=== PATIENT | female | born 1965 | race Caucasian/White ===

== ENCOUNTER → 2017-08-21 16:53 | Outpatient (CLI) | payer MEDICAID, SELFPAY ==
--- NOTE | 2017-08-21 | MM_ITS ---
MM Dig screening mamm BI w/CAD CAD Screening ORDERING PHYSICIAN : Michael Patel MD PATIENT AGE: 52 years GENDER: Female INDICATION: Routine screening. No hormones. No new complaints. Paternal grandmother with breast cancer. TECHNIQUE: Standard CC and MLO images were obtained. R2 CAD reviewed. COMPARISON: Previous mammograms: 2015, 2016, May 2014 FINDINGS: Dense breast bilaterally decreased sensitivity mammography. Dense inhomogeneous breast mammography of decreased sensitivity in breast of this character. However I see no areas of significant new findings. RIGHT BREAST:No discrete new areas of concern. Scattered small punctate calcifications upper-outer quadrant right breast are similar to previous studies. Can be followed. Most likely benign. LEFT BREAST: No new areas of concern Dense breast. Again round density upper-outer quadrant left breast is stable and most likely reflects the cyst identified on ultrasound at 2:00. July 2016. IMPRESSION: Very dense breast bilaterally decreases sensitivity mammography . However I see no significant new areas on today's mammogram.. Follow-up ONE year mammogram recommended If any palpable areas arise ultrasound be recommended as useful compliment to mammography in breast of this increased density and given patient's history of fibrocystic changes on previous studies BI-RADS Category: 2 Benign Finding(s) RECOMMENDED FOLLOW-UP: 1YR - 1 YEAR FOLLOW-UP (A letter has been sent to the patient regarding results of the study.)
== END ==
PROVIDERS: PCP Internal Medicine Adolescent Medicine; Visit Provider Internal Medicine Adolescent Medicine
DX: Z12.31 Encounter for screening mammogram for malignant neoplasm of breast (principal)
CPT/HCPCS: 77067

== ENCOUNTER → 2017-10-18 08:38 | Outpatient (CLI) | payer MEDICAID, SELFPAY ==
[2017-10-18 13:40] LABS: Alanine Aminotransferase 35 U/L (12-78); Albumin/Globulin Ratio 1.3 (1.1-1.8); Alkaline Phosphatase 112 U/L (46-116); Anion Gap 11.3 mEq/L (5-15); Aspartate Amino Transferase 28 U/L (15-37); Bilirubin,Total 0.2 mg/dL (0.2-1.0); Blood Urea Nitrogen 16 mg/dL (7-18); Calcium 9.6 mg/dL (8.5-10.1); Carbon Dioxide 30 mmol/L (21.0-32.0); Chloride 105 mmol/L (98-107); Chol/HDL Ratio 2.8 (1-3.5); Cholesterol 145 mg/dL (140-200); Creatinine,Serum 0.71 mg/dL (0.55-1.02); Estimated Glomerular Filt Rate 86 ml/min (>60); GFR (African American) 105 ML/MIN (>60); Globulin 3.2 gm/dl (1.3-3.2); Glucose 106 mg/dL (74-106); HDL Cholesterol 52 mg/dL (29-89); LDL Cholesterol 81 mg/dL (0-130); Potassium 4.3 mmoL/L (3.5-5.1); Sodium 142 mmol/L (136-145); Thyroid Stimulating Hormone 0.58 uIU/ml (0.358-3.740); Total Protein,Serum 7.2 gm/dL (6.4-8.2); Triglycerides 62 mg/dL (30-200); VLDL Cholesterol 12 mg/dL (0-40)
== END ==
PROVIDERS: Visit Provider Internal Medicine Adolescent Medicine
DX: E78.5 Hyperlipidemia, unspecified (principal); E03.9 Hypothyroidism, unspecified
CPT/HCPCS: 36415; 80053; 80061; 84443

== ENCOUNTER → 2018-02-18 13:02 | Outpatient (CLI) | payer MEDICAID, SELFPAY ==
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
== END ==
PROVIDERS: Family Provider Family Medicine; PCP Internal Medicine Adolescent Medicine; Visit Provider Internal Medicine Adolescent Medicine
DX: Z13.820 Encounter for screening for osteoporosis (principal); Z78.0 Asymptomatic menopausal state
CPT/HCPCS: 77080

== ENCOUNTER → 2018-04-25 09:34 | Outpatient (CLI) | payer MEDICAID, SELFPAY ==
[2018-04-25 14:18] LABS: Alanine Aminotransferase 33 U/L (12-78); Albumin Level 3.8 gm/dL (3.4-5.0); Albumin/Globulin Ratio 1.2 (1.1-1.8); Alkaline Phosphatase 96 U/L (46-116); Anion Gap 13.3 mEq/L (5-15); Aspartate Amino Transferase 19 U/L (15-37); Bilirubin,Total 0.4 mg/dL (0.2-1.0); Blood Urea Nitrogen 12 mg/dL (7-18); Calcium 8.9 mg/dL (8.5-10.1); Carbon Dioxide 29 mmol/L (21.0-32.0); Chloride 104 mmol/L (98-107); Cholesterol 131 mg/dL (140-200); Creatinine,Serum 0.64 mg/dL (0.55-1.02); Estimated Glomerular Filt Rate 97 ml/min (>60); GFR (African American) 118 ML/MIN (>60); Globulin 3.3 gm/dl (1.3-3.2); Glucose 113 mg/dL (74-106); HDL Cholesterol 66 mg/dL (29-89); LDL Cholesterol 51 mg/dL (0-130); Potassium 4.3 mmoL/L (3.5-5.1); Sodium 142 mmol/L (136-145); Thyroid Stimulating Hormone 0.31 uIU/ml (0.358-3.740); Total Protein,Serum 7.1 gm/dL (6.4-8.2); Triglycerides 70 mg/dL (30-200); VLDL Cholesterol 14 mg/dL (0-40)
== END ==
PROVIDERS: PCP Nurse Practitioner Family; Visit Provider Nurse Practitioner Family
DX: E78.5 Hyperlipidemia, unspecified (principal); E03.9 Hypothyroidism, unspecified
CPT/HCPCS: 36415; 80053; 80061; 84443

== ENCOUNTER → 2018-09-23 08:25 | Outpatient (CLI) | payer MEDICAID, SELFPAY ==
[2018-09-23 14:54] LABS: Alanine Aminotransferase 29 U/L (12-78); Albumin Level 3.9 gm/dL (3.4-5.0); Albumin/Globulin Ratio 1.1 (1.1-1.8); Alkaline Phosphatase 103 U/L (46-116); Anion Gap 11.3 mEq/L (5-15); Aspartate Amino Transferase 15 U/L (15-37); Bilirubin,Total 0.3 mg/dL (0.2-1.0); Blood Urea Nitrogen 17 mg/dL (7-18); Calcium 8.9 mg/dL (8.5-10.1); Carbon Dioxide 30 mmol/L (21.0-32.0); Chloride 103 mmol/L (98-107); Chol/HDL Ratio 2.7 (1-3.5); Cholesterol 159 mg/dL (140-200); Estimated Glomerular Filt Rate 88 ml/min (>60); GFR (African American) 106 ML/MIN (>60); Globulin 3.6 gm/dl (1.3-3.2); Glucose 98 mg/dL (74-106); HDL Cholesterol 58 mg/dL (29-89); LDL Cholesterol 76 mg/dL (0-130); Potassium 4.3 mmoL/L (3.5-5.1); Sodium 140 mmol/L (136-145); Thyroid Stimulating Hormone 8.15 uIU/ml (0.358-3.740); Total Protein,Serum 7.5 gm/dL (6.4-8.2); Triglycerides 124 mg/dL (30-200); VLDL Cholesterol 25 mg/dL (0-40)
== END ==
PROVIDERS: PCP Internal Medicine Adolescent Medicine; Visit Provider Internal Medicine Adolescent Medicine
DX: E78.5 Hyperlipidemia, unspecified (principal); E03.9 Hypothyroidism, unspecified
CPT/HCPCS: 36415; 80053; 80061; 84443

== ENCOUNTER → 2018-10-06 16:44 | Outpatient (CLI) | payer MEDICAID, SELFPAY ==
--- NOTE | 2018-10-06 16:46 | MM_ITS ---
MM Dig screening mamm BI w/CAD CAD Screening COMPARISON: Digital mammograms with CAD 08/21/2017 and 07/16/2016 INDICATION: There is a history of breast cancer patient paternal grandmother. TECHNIQUE: Standard CC and MLO images were obtained. R2 CAD reviewed. FINDINGS: There is a markedly dense and heterogenic parenchymal pattern definitely lessening the sensitivity of mammography. The findings are bilateral and symmetrical. There are scattered benign-appearing microcalcifications in each breast. There is no suspicious lesion and there are no suspicious microcalcifications. IMPRESSION: Markedly dense parenchymal pattern with no suspicious lesion seen. BI-RADS Category: 2 Benign Finding(s) RECOMMENDED FOLLOW-UP: 1YR - 1 YEAR FOLLOW-UP (A letter has been sent to the patient regarding results of the study.)
== END ==
PROVIDERS: PCP Internal Medicine Adolescent Medicine; Visit Provider Internal Medicine Adolescent Medicine
DX: Z12.31 Encounter for screening mammogram for malignant neoplasm of breast (principal)
CPT/HCPCS: 77067

== ENCOUNTER → 2019-12-02 15:46 | Outpatient (CLI) | payer OTHER, SELFPAY ==
--- NOTE | 2019-12-02 15:48 | MM_ITS ---
PROCEDURE: MM DIG SCREENING MAMM BI W/CAD Digital Breast Tomosynthesis Included CLINICAL INDICATION: SCREENING There is a history of breast cancer patient's paternal grandmother. COMPARISON: [facility] DIG MAMM-SCREEN [facility] W/CAD from 07/16/2016 [facility] MM Dig screening mamm BI w/CAD from 08/21/2017 DIG MAMM-SCREEN AILYN from 10/06/2018 TECHNIQUE: Standard CC and MLO images and 3D Tomosynthesis was obtained. R2 CAD reviewed. FINDINGS: Prominent diffuse somewhat heterogenic fibroglandular densities are seen throughout both breasts. There are multiple scattered benign-appearing micro and macrocalcifications in each breast. Ousmane images are most helpful in this type of dense breast parenchyma. There is no suspicious lesion and no suspicious microcalcifications. IMPRESSION: Dense and heterogenic parenchymal pattern with no suspicious lesions seen BI-RAD Category: 2 Benign Finding(s) FOLLOW-UP: 1YR 1 Year Follow-up (A letter has been sent to the patient regarding results of the study.) Dictated by: Dr. Josh More MD 12/04/2019 08:[address] Josh More MD in [place] 12/04/2019 08:45
== END ==
PROVIDERS: PCP Internal Medicine Adolescent Medicine; Visit Provider Internal Medicine Adolescent Medicine
DX: Z12.31 Encounter for screening mammogram for malignant neoplasm of breast (principal)
CPT/HCPCS: 77063; 77067

== ENCOUNTER → 2020-01-12 14:28 | Outpatient (CLI) | payer OTHER, SELFPAY | PROVIDERS: PCP Internal Medicine Adolescent Medicine; Visit Provider Internal Medicine Adolescent Medicine | DX: R00.2 Palpitations (principal) | CPT/HCPCS: 93225; 93226 ==

== ENCOUNTER → 2020-04-07 14:33 | Outpatient (CLI) | payer OTHER, SELFPAY ==
--- NOTE | 2020-04-07 14:35 | XR_ITS ---
PROCEDURE: XR DEXA AXIAL SKELETON CLINICAL HISTORY: ROUTINE MEDICAL EXAM COMPARISON: [facility] XR DEXA axial skeleton from 02/18/2018 FINDINGS: The right hip BMD is 0.724 with a T-score of -1.1. The left hip BMD is 0.695 with a T-score of -1.4. The lumbar spine BMD is 0.880 with a T-score of -1.5. IMPRESSION: This patient is considered osteopenic according to the World Health Organization criteria. Bone density is between 10 and 25 percent below young normal. Fracture risk is moderate. Treatment is advised. Based on these results a follow-up exam is recommended in 2 year. Dictated by: Lucian Barnes MD 04/09/2020 09:29 Lucian Barnes MD in [place] 04/09/2020 09:29
== END ==
PROVIDERS: PCP Internal Medicine Adolescent Medicine; Visit Provider Internal Medicine Adolescent Medicine
DX: Z78.0 Asymptomatic menopausal state (principal)
CPT/HCPCS: 77080

== ENCOUNTER → 2020-08-10 11:13 | Outpatient (CLI) | payer OTHER, SELFPAY ==
[2020-08-10 16:09] LABS: Basophils # 0.1 K/mm3 (0-0.2); Chloride 101 mmol/L (98-107); Eosinophils # 0.3 K/mm3 (0.0-0.4); Eosinophils % 4.9 % (0.1-12.0); Hemoglobin 14.5 g/dL (12.2-16.2); Lymphocytes # 3.1 K/mm3 (0.7-4.5); Lymphocytes % 49.9 % (10-50); Mean Corpuscular HGB Conc 33.7 g/dL (31.8-35.4); Mean Corpuscular Hemoglobin 30.4 pg (27.0-31.2); Mean Platelet Volume 7.4 fl (7.4-10.4); Monocytes # 0.4 K/mm3 (0.1-1.0); Monocytes % 5.6 % (1.7-9.3); Neutrophils # 2.4 K/mm3 (1.8-7.8); Neutrophils % 38.6 % (37.0-80.0); Platelet Count 375 K/mm3 (142-424); Potassium 4.4 mmoL/L (3.5-5.1); Red Blood Count 4.78 M/mm3 (4.20-5.40); Sodium 140 mmol/L (136-145); White Blood Count 6.3 K/mm3 (4.8-10.8)
[2020-08-10 16:11] LABS: Blood Urea Nitrogen 18 mg/dl (7-17)
[2020-08-10 16:12] LABS: Alanine Aminotransferase 23 U/L (12-78); Albumin Level 4.2 g/dl (3.5-5.0); Albumin/Globulin Ratio 1.4 (1.1-1.8); Alkaline Phosphatase 93 U/L (38-126); Anion Gap 9.4 mEq/L (5-15); Aspartate Amino Transferase 32 U/L (14-36); Bilirubin,Total 0.4 mg/dl (0.2-1.3); Carbon Dioxide 34 mmol/L (22.0-30.0); Cholesterol 194 mg/dl (140-200); Estimated Glomerular Filt Rate 104 ml/min (>60); GFR (African American) 126 ML/MIN (>60); Globulin 2.9 g/dL (1.3-3.2); Total Protein,Serum 7.1 g/dl (6.3-8.2); Triglycerides 132 mg/dl (30-150); VLDL Cholesterol 26 mg/dL (0-40)
[2020-08-10 16:13] LABS: Calcium 9.6 mg/dl (8.4-10.2); Chol/HDL Ratio 2.8 (1-3.5); Glucose 97 mg/dl (74-100); HDL Cholesterol 69 mg/dl (40-60)
[2020-08-10 16:24] LABS: Direct LDL Cholesterol 70.88 mg/dL (100-129)
== END ==
PROVIDERS: Visit Provider Internal Medicine Adolescent Medicine
DX: M47.816 Spondylosis without myelopathy or radiculopathy, lumbar region (principal); E03.9 Hypothyroidism, unspecified; E78.5 Hyperlipidemia, unspecified
CPT/HCPCS: 36415; 80053; 80061; 84443; 85025

== ENCOUNTER → 2021-02-21 08:38 | Outpatient (CLI) | payer OTHER, SELFPAY ==
[2021-02-22 09:51] LABS: Basophils # 0.2 K/mm3 (0-0.2); Basophils % 2.5 % (0.1-2.0); Eosinophils # 0.2 K/mm3 (0.0-0.4); Eosinophils % 2.2 % (0.1-12.0); Hematocrit 45.8 % (37.0-47.0); Hemoglobin 14.8 g/dL (12.2-16.2); Lymphocytes # 2.8 K/mm3 (0.7-4.5); Lymphocytes % 34.4 % (10-50); Mean Corpuscular HGB Conc 32.3 g/dL (31.8-35.4); Mean Corpuscular Volume 96.1 fl (81-99); Mean Platelet Volume 10.2 fl (7.4-10.4); Monocytes # 0.4 K/mm3 (0.1-1.0); Monocytes % 5.3 % (1.7-9.3); Neutrophils # 4.6 K/mm3 (1.8-7.8); Neutrophils % 55.5 % (37.0-80.0); Platelet Count 432 K/mm3 (142-424); Red Blood Count 4.76 M/mm3 (4.20-5.40); Red Cell Distribution Width 13.1 % (11.5-17.5); White Blood Count 8.2 K/mm3 (4.8-10.8)
[2021-02-22 10:11] LABS: 25-OH Vitamin D, Total 48.3 ng/mL (30-100)
[2021-02-22 10:56] LABS: Alanine Aminotransferase 32 U/L (12-78); Albumin Level 4.2 g/dl (3.5-5.0); Albumin/Globulin Ratio 1.4 (1.1-1.8); Alkaline Phosphatase 98 U/L (38-126); Anion Gap 10.5 mEq/L (5-15); Aspartate Amino Transferase 45 U/L (14-36); Bilirubin,Total 0.2 mg/dl (0.2-1.3); Blood Urea Nitrogen 16 mg/dl (7-17); Calcium 9.5 mg/dl (8.4-10.2); Carbon Dioxide 32 mmol/L (22.0-30.0); Chloride 102 mmol/L (98-107); Chol/HDL Ratio 2.9 (1-3.5); Cholesterol 202 mg/dl (140-200); Estimated Glomerular Filt Rate 104 ml/min (>60); GFR (African American) 126 ML/MIN (>60); Glucose 102 mg/dl (74-100); HDL Cholesterol 69 mg/dl (40-60); Potassium 4.5 mmoL/L (3.5-5.1); Sodium 140 mmol/L (136-145); Total Protein,Serum 7.2 g/dl (6.3-8.2); Triglycerides 105 mg/dl (30-150); VLDL Cholesterol 21 mg/dL (0-40)
[2021-02-22 11:08] LABS: Direct LDL Cholesterol 94.53 mg/dL (100-129)
[2021-02-22 11:15] LABS: Free Thyroxine Index 2.3 ug/dL (5.93-13.13); T4 (Thyroxine) 6.7 ug/dl (5.53-11.0); Triiodothryronine (T3) Uptake 34 % (23.5-40.5)
[2021-02-22 11:47] LABS: Vitamin B12 493 pg/mL (239-931)
== END ==
PROVIDERS: Visit Provider Internal Medicine Adolescent Medicine
DX: E03.9 Hypothyroidism, unspecified (principal); E78.5 Hyperlipidemia, unspecified; M85.89 Other specified disorders of bone density and structure, multiple sites; Z79.899 Other long term (current) drug therapy
CPT/HCPCS: 80053; 80061; 82306; 82607; 84436; 84443; 84479; 85025

== ENCOUNTER → 2021-03-14 17:16 | Outpatient (CLI) | payer OTHER, SELFPAY ==
--- NOTE | 2021-03-14 17:23 | MM_ITS ---
PROCEDURE: MM DIG SCREENING MAMM BI W/CAD Digital Breast Tomosynthesis Included CLINICAL INDICATION: SCREENING There is a history of breast cancer patient's paternal grandmother. COMPARISON: [facility] MM Dig screening mamm BI w/CAD from 08/21/2017 MG DIG MAMM-SCREEN AILYN from 10/06/2018 MG MM DIG SCREENING MAMM BI W/CAD from 12/02/2019 TECHNIQUE: Standard CC and MLO images and 3D Tomosynthesis was obtained. R2 CAD reviewed. FINDINGS: Diffusely dense and heterogenic fibroglandular densities are seen throughout both breast lessening the sensitivity of mammography. Findings are bilateral and symmetrical. There are scattered benign-appearing microcalcifications in each breast. There is no new or suspicious lesion in either breast and no suspicious microcalcifications. IMPRESSION: Dense and heterogenic parenchymal pattern with no suspicious lesions seen BI-RAD Category: 2 Benign Finding(s) FOLLOW-UP: 1YR 1 Year Follow-up (A letter has been sent to the patient regarding results of the study.) Dictated by: Dr. Josh More MD 03/17/2021 09:31 Dr. Josh More MD in [place] 03/17/2021 09:31
== END ==
PROVIDERS: PCP Internal Medicine Adolescent Medicine; Visit Provider Internal Medicine Adolescent Medicine
DX: Z12.31 Encounter for screening mammogram for malignant neoplasm of breast (principal)
CPT/HCPCS: 77063; 77067

== ENCOUNTER → 2021-04-28 10:18 | Outpatient (CLI) | payer OTHER, SELFPAY | PROVIDERS: PCP Internal Medicine Adolescent Medicine; Visit Provider Internal Medicine Adolescent Medicine | DX: G47.33 Obstructive sleep apnea (adult) (pediatric) (principal); R40.0 Somnolence; R06.83 Snoring | CPT/HCPCS: 95806 ==

== ENCOUNTER 2023-01-25 02:44 | Emergency (ER) | payer OTHER, SELFPAY ==
[2023-01-25 02:44] VITALS: BP 130/78; PULSE 115; RESP 16; TEMP 36.4; O2SAT 99; BMI 21.9
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
[2023-01-25 03:06] VITALS: BP 130/78; PULSE 118; RESP 20; O2SAT 98
--- NOTE | 2023-01-25 03:08 | PC.NURSE ---
Pt states I Have Tylenol in my bag can I take some of it, Provider aware and ok with pt taking her personal Tylenol. Verified pts Tylenol, she took 1000mg PO
[2023-01-25 03:14] LABS: Basophils % 0.1 % (0.1-2.0); Eosinophils # 0.1 K/mm3 (0.0-0.4); Eosinophils % 0.6 % (0.1-12.0); Hematocrit 44.7 % (37.0-47.0); Hemoglobin 15.1 g/dL (12.2-16.2); Lymphocytes # 1.4 K/mm3 (0.7-4.5); Lymphocytes % 12.6 % (10-50); Mean Corpuscular HGB Conc 33.7 g/dL (31.8-35.4); Mean Corpuscular Hemoglobin 30.6 pg (27.0-31.2); Mean Corpuscular Volume 90.8 fl (81-99); Mean Platelet Volume 7.2 fl (7.4-10.4); Monocytes # 0.5 K/mm3 (0.1-1.0); Monocytes % 4.3 % (1.7-9.3); Neutrophils # 9.3 K/mm3 (1.8-7.8); Neutrophils % 82.6 % (37.0-80.0); Platelet Count 412 K/mm3 (142-424); Red Blood Count 4.93 M/mm3 (4.20-5.40); Red Cell Distribution Width 12.5 % (11.5-17.5); White Blood Count 11.2 K/mm3 (4.8-10.8)
[2023-01-25 03:15] LABS: Chloride 108 mmol/L (98-107); Sodium 145 mmol/L (136-145)
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
[2023-01-25 03:16] LABS: Potassium 3.7 mmoL/L (3.5-5.1)
[2023-01-25 03:18] LABS: Blood Urea Nitrogen 18 mg/dl (7-17); Creatinine Clearance Estimated 67 mL/min (50-200); Estimated Glomerular Filt Rate 74 ml/min (>60); GFR (African American) 89 ML/MIN (>60)
[2023-01-25 03:19] LABS: Anion Gap 11.7 mEq/L (5-15); Calcium 9.9 mg/dl (8.4-10.2); Carbon Dioxide 29 mmol/L (22.0-30.0); Glucose 106 mg/dl (74-100)
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
[2023-01-25 03:30] VITALS: BP 120/66; PULSE 100; RESP 18; O2SAT 99
--- NOTE | 2023-01-25 03:33 | XR_ITS ---
PROCEDURE INFORMATION: Exam: XR Left Hand Exam date and time: 01/25/2023 3:42 AM Age: 57 years old Clinical indication: Finger(s); Patient HX: C/O 3rd left digit pain; Additional info: Mcp pain TECHNIQUE: Imaging protocol: Radiologic exam of the left hand. Views: 3 or more views. COMPARISON: No relevant prior studies available. FINDINGS: Bones/joints: Normal. No acute fracture or dislocation identified. Soft tissues: Normal. IMPRESSION: No acute findings.
[2023-01-25 04:27] VITALS: BP 130/78; PULSE 97; RESP 16; TEMP 36.6; O2SAT 99
== END 2023-01-25 04:28 | disposition home or self-care (01) ==
PROVIDERS: Emergency Provider Emergency Medicine
DX: M54.2 Cervicalgia (principal); M54.50 Low back pain, unspecified; Y04.8XXA Assault by other bodily force, initial encounter
CPT/HCPCS: 70498; 72170; 73130; 80048; 85025; 99285; Q9967

== ENCOUNTER 2024-06-30 07:00 | Outpatient (RCR) | payer OTHER, SELFPAY ==
--- NOTE | 2024-06-26 07:53 | HMH.PTOPEV ---
PT Outpatient Evaluation Rehab PT Outpatient Evaluation Start: 06/26/24 07:04 Freq: Status: Active Protocol: Document 06/26/24 07:05 [email or web address] (Rec: 06/26/24 07:53 [email or web address] [id number]) E-signed By Bryant Guerra, PT Outpatient Therapy Subjective History Subjective History Pt. is a 58 year old female who presents to [facility] in [place] for the outpatient initial evaluation this date( 06/26/24) w/ c/o acute on chronic and intermittent R- sided lumbar and RLE P!, numbness, and muscle spasms of insidious onset since March 2024 that has progressively been getting worse over the last month. Pt. vocalizes symptoms wouldn't worsen until the end of the day, now pt. c/o symptoms will hurt in the a.m. getting out of bed and last all day now. Pt. reports she is unable to stand still for a period of time secondary to symptoms radiating into the RLE. Pt. c/ o numbness and tingling into the toes the longer she stands when she showers, fixes her hair, or reaching for groceries at the store. Pt. reports having some symptom relief w/ OTC medication, but also w/ walking she notices some improvement in symptoms. Pt. also vocalizes having improvement when she sits down . Pt. denies bowel/bladder dysfunction, denies saddle paresthesia. Recent diagnostic imaging indicates grade I anterolisthesis at L5-S1. Pt. denies having any injections for current complaint. Pt. RTMD in 2 wks. Current medications include Levothyroxine, Aleve, Meloxicam, Excedrin, Tylenol, and Tizanidine. PMH includes history of herniated discs and hypothyroidism. New diagnosis of cancer in past 12 No months? Chief Complaint Pain,Spasms,Stiff,Gives out/ Unstable,Paresthesia,Weakness Symptom Type Ache,Throb,Sharp,Stabbing, Numbness,Tingling,Shooting Symptoms Relieved By Rest/Positioning,Ice,OTC Meds, Activity Symptoms Aggravated By Standing,Twisting,Lifting Prior Functional Limitations None Current Functional Limitations Lifting,Housework,Dressing, Sleeping,Standing,Recreation Activity Symptom Description Intermittent,Activity Dependent Level of pain today (0-10) 0 Pain scale - at its best (0-10) 0 Pain scale - at its worst (0-10) 10 Lumbopelvic Eval Posture Thoracic Spine Posture Standing Position Neutral Lumbar Spine Posture Standing Position Flexible Scoliosis on (L) Assistive device Assistive Devices None / NA Gait Observation General Gait Pattern Observation No Deviations/Normal Palapation tenderness right lumbar spinal tenderness Yes: L4/L5/S1 buttock tenderness Yes: piriformis mm Lumbar/Sacral Palpation Findings Tenderness Lumbar/Sacral Palpation Overall Comment grade 4 +TTP Accessory Movement L-spine Vertebrae Accessory Movements Central P/A Freeman,Right P/A that Elicit Symptoms Freeman L4 right L5 right S1 right Range of Motion Lumbar Spine Active Flexion Range of 65 Motion (degrees) Lumbar Spine Active Extension Range of 21 Motion (degrees) Left Lumbar Spine Lateral Flexion Active 9 Range of Motion (degrees) Right Lumbar Spine Lateral Flexion 19 Active Range of Motion (degrees) Lumbar Spine ROM Limitations Soft Tissue Tightness,Pain Manual Muscle Test Right Knee Extension Strength Grade 4- Good- Knee Flexion Strength Grade 4- Good- Hip Flexion Strength Grade 4 Good Hip Abduction Strength Grade 4 Good Hip Adduction Strength Grade 4 Good Hip External Rotation Strength Grade 4- Good- Hip Internal Rotation Strength Grade 4- Good- Hip Extension Strength Grade 4 Good Gluteus Atilio Strength Grade 4 Good Extensor Hallucis Longus Strength Grade 4 Good Ankle Dorsiflexion Strength Grade 4 Good Gastronemius/Soleus Strength Grade 4 Good DTR Rt Patellar 1+ Lt Patellar 1+ Rt Gastroc/Soleus 0 Lt Gastroc/Soleus 0 Altered Sensation Right LE Dermatome Level L4,L5 Comment decreased light touch sensation vocalized in above patterns of RLE compared to LLE Special Tests Lumbar Spine Screen Positive Hip Piriformis Test Positive Right Sciatic Nerve Tension Test Positive Right Hip 90-90 Straight Leg Raise Test Positive Right Lumbar Long [place] Distraction Test/Manual Positive Traction Outpatient Therapy Assessment Impairments Problems/Impairmments Palpation Tenderness,Impaired Range of Motion,Impaired Strength,Impaired Standing, Impaired Lifting,Impaired Dressing,Impaired Shower/ Bathing,Impaired Household Care,Impaired Recreational Activities,Subjective C/O Pain ,Impaired Self Care/Self Management Prognosis Rehab Potential Good Comment w/ HEP compliancy Clinical Impression Consistent with Diagnosis Yes Consistent with grade I Spondylolisthesis Lumbar Additional details: Lumbar Radiculopathy, R Short Term Goals Number of Weeks 2 Decreased Palpation Tenderness Yes: grade 1-2 +TTP Decrease Subjective C/O Pain Yes: worse:5/10 Patient to be Ind w/ HEP Yes Snf Goals Number of Weeks 4 Decreased Palpation Tenderness Yes: grade 1 +TTP Increase Range of Motion Yes: lumbar spine WFL in all planes of motion w/o difficulty Increase Strength Yes: 4+ to 5/5 RLE MMT scores grossly w/o difficulty Increase Ability to Stand Yes: Pt. will stand for 10' w/ o difficulty for improved community dwelling Improve Ability to Dress Self Yes: Pt. will be able to stand w/o P! to dress self Improve Ability to Shower/Bathe Self Yes: Pt. will be able to stand and shower self w/o difficulty Improve Ability For Household Care Yes: Pt. will be able to stand and wash dishes w/o difficulty Improve Oswestry Score Yes Decrease Subjective C/O Pain Yes: worse:-07/27 Improve Self Care/Self Management Yes: Pt. will be able to sleep throughout the night w/o difficulty from symptoms Patient to be Ind w/ Advanced HEP Yes Outpatient Therapy Plan of Care Treatment Plan May Include Therapeutic Exercise Including Home Yes Exercise Program Manual Therapy Techniques Yes Neuromuscular Re-education Yes Therapeutic Activities to Return to Yes Previous Functional/Work Level ADL/Self Care Education Yes Mechanical Traction Yes Dry Needling Yes Thermal Modalities Yes Electrical Stimulation Yes Ultrasound/Phonophoresis Yes Iontophoresis Yes Vasopneumatic Compression Pump Yes Massage Yes Eval/Re-Eval Yes Frequency Times per week 2 Duration Number of Weeks 4 Addendums This patient is a candidate for social No or vocational rehab? Patient/Guardian verbally acknowledges Yes understanding of treatment program and consents to further treatment? Patient/Guardian verbally acknowledges Yes understanding of diagnosis, prognosis and goals for treatment? Eval Complexity PT Charges 85439 - Low Complexity Shoulder/Elbow Eval Shoulder Objective Measurements Elbow Objective Measurements PHYSICIAN CERTIFICATION: I certify the specified therapy services for Kirstin Julian are required, authorized, and reviewed every 30 days.
== END 2024-06-30 23:59 | disposition home or self-care (01) ==
LOC: PT 07:00
PROVIDERS: Visit Provider Physician Assistant
DX: M43.16 Spondylolisthesis, lumbar region (principal); M54.31 Sciatica, right side
CPT/HCPCS: 97110; 97140; 97163

== ENCOUNTER 2025-03-04 15:36 | Outpatient (CLI) | payer OTHER, SELFPAY ==
--- OUTSIDE RECORDS SUMMARY | 2024-08-22 17:30 | XMS_ITS ---
Author Organization [facility] D KIMI Address [address] [facility] [address] [facility] [place] [address] [place] [address] Care Team Providers Care Link Trainer Teacher Name Role Phone Michael Patel Primary Care Provider [phone] Migration, Provider Unavailable Unavailable Allergies Allergen (clinical drug ingredient) Drug/Non Drug Allergy documented on EMR Reaction Allergy Type Onset Date Status Penicillin Unknown Drug Allergy [facility] Encounter Medications Medication SIG (Take, Route, Frequency, Duration) Notes Start Date End Date Status Alendronate Sodium 35 MG 1 tab(s) orally once a week; Duration: 30 days Active Euthyrox 175 MCG (0.175 MG) 1 TAB(S) ORALLY ONCE A DAY; Duration: 90 DAYS *Please review and pick correct strength-formulatio n from Intrallect options. If intended option is not shown, discontinue and re-order from Quick Search* Active CALCIUM WITH VITAMIN D3 500 MG-10 MCG 1 TAB(S) CHEWED 2 TIMES A DAY; Duration: 30 DAYS *Please review for potential replacement for e-prescription and drug interaction check* Active VISTARIL PAMOATE 25 MG 1 CAP(S) ORALLY AT BEDTIME; Duration: 30 DAYS *Please review for potential replacement for e-prescription and drug interaction check* 08/08/2021 Active Meloxicam 15 MG 1 tab(s) orally once a day; Duration: 30 days Active Calcium 500 MG 1 TAB ORALLY DAILY *Please revie w and pick correct strength-formulatio n from Intrallect options. If intended option is not shown, discontinue and re-order from Quick Search* Active Multivitamin MULTIPLE VITAMINS 1 CAP(S) ORALLY ONCE A DAY; Duration: 30 DAY(S) *Please review and pick correct strength-formulatio n from LaunchGramspan options. If intended option is not shown, discontinue and re-order from Quick Search* Active predniSONE 20 MG 1 tab(s) orally once a day; Duration: 3 days 07/30/2024 Active valACYclovir HCl 500 MG 1 tab(s) orally 2 times a day; Duration: 5 days Active Temazepam 15 MG 1 cap(s) orally once a day (at bedtime); Duration: 30 days 07/31/2024 Active Encounters Encounter Location Date Provider Diagnosis [facility] KIMI [address] [place] [address] 08/22/2024 Provider Migration Pain in joints of right hand M25.541 Assessments Encounter Date Diagnosis (ICD Code) Assessment Notes Treatment Notes Treatment Clinical Notes Section Notes 08/22/2024 Pain in joints of right hand (ICD-10 - M25.541) Plan Of Treatment Medication Medication Name Sig Start Date Stop Date Notes Euthyrox 175 MCG (0.175 MG) 1 TAB(S) ORALLY ONCE A DAY; Duration: 90 DAYS *Please review and p ick correct strength-formulation from WaveTech Enginesan options. If intended option is not shown, discontinue and re-order from Quick Search* predniSONE 20 MG 1 tab(s) orally once a day; Duration: 3 days 07/30/2024 Temazepam 15 MG 1 cap(s) orally once a day (at bedtime); Duration: 30 days 07/31/2024 Next Appt Details Provider Name:Flavia Nolan , 05/05/2025 11:00:00 AM, [address] [place] [address], [phone], Progress Notes * Kirstin JULIAN LDOB: 6 (59 yo F)Acc No.[id number]:08/22/2024 Patient: Kirstin PATIÑO Provider: Chris Portillo :1965 A ge:59 Y S ex:Female Date:08/22/2024 Address:[address] [place] [address], [id number] Pcp:Michael Patel Subjective: * Chief Complaints: * 1 . Multum To Medispan Conversion Encounter. * Medical History: * Medications: T aking Multivitamin MULTIPLE VITAMINS CAPSULE 1 CAP(S) ORALLY ONCE A DAY , Notes to Pharmacist: *Please review and pick correct strength-formulation from Medispan options. If intended option is not shown, discontinue and re-order from Quick Search*, Taking valACYclovir HCl 500 MG Tablet 1 tab(s) orally 2 times a day , Taking Calcium 500 MG 1 TAB ORALLY DAILY , Notes to Pharmacist: *Please review and pick correct strength-formulation from Medispan options. If intended option is not shown, discontinue and re-order from Quick Search*, Taking CALCIUM WITH VITAMIN D3 500 MG-10 MCG TABLET, CHEWABLE 1 TAB(S) CHEWED 2 TIMES A DAY , Notes to Pharmacist: *Please review for potential replacement for e-prescription and drug interaction check*, Taking Alendronate Sodium 35 MG Tablet 1 tab(s) orally once a week , Taking VISTARIL PAMOATE 25 MG CAPSULE 1 CAP(S) ORALLY AT BEDTIME , Notes to Pharmacist: *Please review for potential replacement for e-prescription and drug interaction check*, Taking Meloxicam 15 MG Tablet 1 tab(s) orally once a day * Allergies: P enicillin. Objective: * Vitals: Assessment: * Assessment: 1. P ain in joints of right hand - M25.541 (Primary) Plan: * Treatment: 2. O thers Refill Temazepam Capsule, 15 MG, 1 cap(s), orally, once a day (at bedtime), 30 days, 30, Refills 2;?Start Euthyrox TABLET, 175 MCG (0.175 MG), 1 TAB(S), ORALLY, ONCE A DAY, 90 DAYS, 90 TABLET, Refills 1, Notes to Pharmacist: *Please review and pick correct strength-formulation from Medispan options. If intended option is not shown, discontinue and re-order from Quick Search*. * * Electronic signature of Prov ider Migration on 03/04/2025 at 03:38 PM EDT Sign off status: Pending * Provider: Chris farfan Migration Date: 0 08/22/2024 Generated for Deepika greene/Rosa Maria/Kathyitting on: 1 03:38 PM EDT
--- OUTSIDE RECORDS SUMMARY | 2024-10-06 05:45 | XMS_ITS ---
Author Organization [facility] D KIMI Address [address] [facility] [address] [place] [address] Care Team Providers Care Grades 1 Through 5 Teacher Name Role Phone Michael Patel Primary Care Provider REASON FOR VISIT wellness Encounters Encounter Location Date Provider Diagnosis [facility] [address] [address] 10/06/2024 Michael Patel Plan Of Treatment Next Appt Details Provider Name:Flavia Nolan , 05/05/2025 11:00:00 AM, [address] [place] [address], [phone], Progress Notes * Kirstin JULIAN LDOB: 6 (59 yo F)Acc No.[id number]:10/06/2024 Progress notes Patient: Lisa COOLEYKirstin Provider: Herson Patel MD :1965 A ge:59 Y S ex:Female Date:10/06/2024 Address:[address] [place], [place] [phone] Subjective: * Chief Complaints: * 1 . Wellness. * Medical History: Objective: * Vitals: Assessment: Plan: * Treatment: * * Electronic signature of Etienne Patel MD FAAP on 03/04/2025 at 03:40 PM EDT Sign off status: Pending * Provider: Herson Patel MD Date: 0 10/06/2024 Generated for Veroi jc/Rosa Maria/eTransmitting on: 1 03:40 PM EDT
--- OUTSIDE RECORDS SUMMARY | 2024-11-27 07:30 | XMS_ITS ---
Author Organization [facility] D KIMI Address [address] [facility] [address] [place] [address] Care Team Providers Care Braider Tender Name Role Phone iMchael Patel Primary Care Provider Angelika Campos [phone] REASON FOR VISIT pap smear Encounters Encounter Location Date Provider Diagnosis [facility] [address] [address] 11/27/2024 Angelika Campos Plan Of Treatment Next Appt Details Provider Name:Flavia Nolan ce, 05/05/2025 11:00:00 AM, [address], [address], Progress Notes * Kirstin JULIAN LDOB: 6 (59 yo F)Acc No.[id number]:11/27/2024 Progress Notes Patient: Lisa Kirstin COOLEY Provider: Shahzad Campos APRN :1965 A ge:59 Y S ex:Female Date:11/27/2024 Address:[address] [place], [place] [phone] Pcp:Michael Patel Subjective: * Chief Complaints: * 1 . Pap smear. * Medical History: Objective: * Vitals: Assessment: Plan: * Treatment: * * Electronic signature of Brad Campos APRN on 03/04/2025 at 03:39 PM EDT Sign off status: Pending * Provider: Shahzad Campos APRN Date: 0 11/27/2024 Generated for Deepika greene/Rosa Maria/Master on: 1 03:39 PM EDT
--- OUTSIDE RECORDS SUMMARY | 2025-01-06 07:00 | XMS_ITS ---
Author Organization Located [facility] D KIMI Address [address] [facility] [address] [facility] [address] [place] [address] Care Team Providers Care Banbury Mill Operator Name Role Phone Michael Patel Primary Care Provider Flavia Flowers Nancy [phone] Allergies Allergen (clinical drug ingredient) Drug/Non Drug Allergy documented on EMR Reaction Allergy Type Onset Date Status Penicillin Unknown Drug Allergy Active REASON FOR VISIT med ck, leg pain Medications Medication SIG (Take, Route, Frequency, Duration) Notes Start Date End Date Status Levocetirizine Dihydrochloride 5 MG 1 tablet in the evening Orally Once a day; Duration: 90 days 11/12/2024 Active Levothyroxine Sodium 150 MCG 1 capsule in the morning on an empty stomach Orally Once a day; Duration: 90 days 10/16/2024 Active Temazepam 15 MG 1 cap(s) orally once a day (at bedtime); Duration: 30 days 11/10/2024 Active Meloxicam 15 MG 1 tab(s) orally once a day; Duration: 30 days Active Losartan Potassium 50 MG 1 tablet Orally Once a day; Duration: 30 days 01/06/2025 Active CALCIUM WITH VITAMIN D3 500 MG-10 MCG 1 TAB(S) CHEWED 2 TIMES A DAY; Duration: 30 DAYS *Please review for potential replacement for e-prescription and drug interaction check* Active Multivitamin MULTIPLE VITAMINS 1 CAP(S) ORALLY ONCE A DAY; Duration: 30 DAY(S) *Please review and pick correct strength-formulati on from Medispan options. If intended option is not shown, discontinue and re-order from Quick Search* Active Problems Problem Type SNOMED Code ICD Code Onset Dates Problem Status W/U Status Risk Notes Problem Essential hypertension (79170262) Essential hypertension (I10) Active confirmed Problem Sciatica (02376995) Lumbago with sciatica, left side (M54.42) Active confirmed Vital Signs Temperature 98.2 degrees Fahrenheit 01/07/20 Blood pressure systolic 158 mm Hg 01/07/20 Blood pressure diastolic 102 mm Hg 025 Heart Rate 82 /min 01/06/2025 Height 5 ft 3 in in 01/06/2025 Weight 127.3 lbs 01/06/2025 BMI 22.55 kg/m2 01/06/2025 Encounters Encounter Location Date Provider Diagnosis [facility] [address] [address] 01/06/2025 Flavia Flowers Essential hypertensi on I10 ; Lumbago with sciatica, right side M54.41 ; Lumbago with sciatica, left side M54.42 and Other chronic pain G89.29 Assessments Encounter Date Diagnosis (ICD Code) Assessment Notes Treatment Notes Treatment Clinical Notes Section Notes 01/06/2025 Essential hypertension (ICD-10 - I10) Learning About High Blood Pressure material was published 01/06/2025 Lumbago with sciatica, right side (ICD-10 - M54.41) She has had plain imaging within the past year which shows anterior listhesis of the lower lumbar spine. Has completed physical therapy. Already taking NSAIDs and using ice but has persistent symptoms that are disrupting her daily activity and sleep. Recommend MRI for additional information to help guide management. 01/06/2025 Lumbago with sciatica, left side (ICD-10 - M54.42) 01/06/2025 Other chronic pain (ICD-10 - G89.29) Plan Of Treatment Medication Medication Name Sig Start Date Stop Date Notes Losartan Potassium 50 MG 1 tablet Orally Once a day; Duration: 30 days 01/06/2025 Treatment Notes Assessment Notes Essential hypertension Learning About Hi gh Blood Pressure material was published Pending Test Test Name Order Date MRI : Lumbar Spine w/o contrast 01/07/20 Next Appt Details Follow Up: 3-4 weeks, Reason : BP, labs Provider Name:Flavia cazares, 05/05/2025 11:00:00 AM, [address] [address], [place], [address], Progress Notes * Kirstin JULIAN LDOB: 6 (59 yo F)Acc No.[id number]:01/06/2025 Progress Notes Patient: Kirstin PATIÑO Provider: IOANA Contreras :1965 A ge:59 Y S ex:Female Date:01/06/2025 Address:[address] [place] [address], [place], [id number] Pcp:Michael Patel Subjective: * Chief Complaints: * 1 . Med ck. 2. Leg pain. * HPI: g en: Initially presented today for routine Pap smear, no gynecologic concerns or symptoms. Chart review reveals that she had a Pap smear less than 2 years ago, most insurances will not pay for an annual screening Pap smear any longer and since her last Pap smear was normal we will delay this at least until after April 2025. She does have some additional concerns to discuss. Blood pressure has been elevated the last few times she has been in the office. She checked this at the pharmacy as well and it was elevated. Consistently in the 140/90 range. Denies chest pain, shortness of breath, palpitations. No edema. She denies history of hypertension. She is not a smoker. Also with c/o low back pain with bilat sciatica, right worse than left. Has had chronic back pain for a number of years but sciatica symptoms began around March 2024. Did PT at [facility] earlier this year and has been trying to still stretch and exercise at home Taking meloxicam as needed. Ice seems to help some, Stretching helps some Denies change in bowel/bladder function. * ROS: R ESPIRATORY: no S hortness of breath. n o C hest congestion.?Cough y es. C ARDIOLOGY: no C hest pain. n o P alpitations. n o L eg edema. C ONSTITUTIONAL: no F ever. G ASTROENTEROLOGY: no V omiting. n o A bdominal pain. n o D iarrhea. n o C onstipation. U ROLOGY: no D ifficulty urinating. * Medical History: D egenerative Disc Disease, Carpal tunnel-numbness, Depression, DUB related to UTERINE FIBROID, Normal Dexa 02/2018 - Osteopenia in 03/2020 - tx recommended, normal mammogram September 2017 and 11/2019 and 03/09, ANU diagnosed 04/2021 and CPAP ordered, Negative Cologuard 06/12. * Surgical History: a ppendix , c section , umbilical hernia , tubal , cholecystectomy . * Hospitalization/Major Diagno stic Procedure: f or surgeries and childbirth . * Family History: F ather: alive, diagnosed with Heart Disease. M other: , lung ca, diagnosed with Cancer. P aternal Grand Father: . P aternal Grand Mother: . M aternal Grand Father: . M aternal Grand Mother: . S iblings: alive. C hildren: alive. 2 sister(s) . 1 son(s) - healthy. . * Social History: S moking A re you a:: nonsmoker. R ecreational drug use: no. Exercise: yes. Home smoke detector use: yes. Caffeine: yes, 1 cup coffee daily1 soda daily. Living Will: No. Alcohol: no. Travel outside [place]: no. 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 * Medications: T aking Multivitamin MULTIPLE VITAMINS CAPSULE 1 CAP(S) ORALLY ONCE A DAY , Notes to Pharmacist: *Please review and pick correct strength-formulation from Ubiq Mobilespan options. If intended option is not shown, discontinue and re-order from Quick Search*, Taking CALCIUM WITH VITAMIN D3 500 MG-10 MCG TABLET, CHEWABLE 1 TAB(S) CHEWED 2 TIMES A DAY , Notes to Pharmacist: *Please review for potential replacement for e-prescription and drug interaction check*, Taking Meloxicam 15 MG Tablet 1 tab(s) orally once a day , Taking Levothyroxine Sodium 150 MCG Capsule 1 capsule in the morning on an empty stomach Orally Once a day , Taking Temazepam 15 MG Capsule 1 cap(s) orally once a day (at bedtime) , Taking Levocetirizine Dihydrochloride 5 MG Tablet 1 tablet in the evening Orally Once a day , Discontinued valACYclovir HCl 500 MG Tablet 1 tab(s) orally 2 times a day , Discontinued Alendronate Sodium 35 MG Tablet 1 tab(s) orally once a week , Medication List reviewed and reconciled with the patient * Allergies: P enicillin. Objective: * Vitals: N urse: dw, Pain: 5, Temp: 98.2, RR: 16, HR: 82, BP: 158/102, Ht: 5 ft 3 in, Wt: 127.3, BMI:22.55. * Examination: G eneral Examination: General P leasant and Cooperative, NAD on RA,. Oral cavity: M oist membranes. Heart: R egular Rate and Rhythm, no murmur, rubs or gallops. Lungs: c lear to auscultation,. Abdomen: s oft, +BS. Back: m ildly tender LS spine, 1+ patellar reflexes, + SLR on the right. neck s upple,, no thyromegaly,, no lymphadenopathy,. Psych N ormal Mood/Affect. Assessment: * Assessment: 1. E ssential hypertension - I10 (Primary) 2 . L umbago with sciatica, right side - M54.41 3 . L umbago with sciatica, left side - M54.42 4 . O ther chronic pain - G89.29 Plan: * Treatment: 2. L umbago with sciatica, right side I maging: MRI : Lumbar Spine w/o contrast Clinical Notes: She has had plain imaging within the past year which shows anterior listhesis of the lower lumbar spine. Has completed physical therapy. Already taking NSAIDs and using ice but has persistent symptoms that are disrupting her daily activity and sleep. Recommend MRI for additional info rmation to help guide management.??3.?Lumbago with sciatica, left side?Imaging: MRI : Lumbar Spine w/o contrast* 4.?Other chronic pain?Imaging: MRI : Lumbar Spine w/o contrast* * Follow Up: 3 -4 weeks (Reason: BP, labs) * * Sign off status: Completed true * Provider: IOANA Contreras Date: 0 01/06/2025 Generated for Deepika greene/Rosa Maria/Kathyitting on: 1 03:39 PM EDT History and Physical Notes * Examination Category Sub-Category Detail Notes Category Not es General Examination Heart: Regular Rate and Rhythm, no murmur, rubs or gallops Lungs: clear to auscultatio n, Abdomen: soft, +BS Oral cavity: Moist membranes Back: mildly tender LS spi ne, 1+ patellar reflexes, + SLR on the right neck supple,, no thyromeg kvng,, no lymphadenopathy, General Pleasant and Coopera tive, NAD on RA, Psych Normal Mood/Affect
--- OUTSIDE RECORDS SUMMARY | 2025-01-21 00:54 | XMS_ITS | Continuity of Care Document ---
Author Organization [facility] Phone Care Team Providers Care Inspector Wire Products Name Role Phone JUAN CARLOS POWELL Primary Attending JUAN CARLOS POWELL Admitting FRANCISCO CHISHOLM Primary Care JUAN CARLOS POWELL Unavailable RESULTS Patient: KENNEDY MILLAN Date of : August [birth year] LABORATORY RESULTS Information is not available LABORATORY NARRATIVE RESULTS Information is not available RADIOLOGY RESULTS ORDER 100: MRI SPINE LUMBAR WO (LOINC: 95240-7) ORDER DATE: January 19, 2025 6:16:00 PM [facility] PERFORMING LAB: [address] [id number] Final Result Date: January 19, 2025 7:22:[address] [place] [address] Name: RD BENAVIDES Exam Date: 01/19/2025 : 1965 Age 59 years Gender: F Physician: JUAN CARLOS POWELL Facility: [facility] Facility HSV: Outpatient Exam: MRI SPINE LUMBAR WO MR LUMBAR SPINE WITHOUT IV CONTRAST 01/19/2025 2:22 PM CDT CLINICAL INDICATION: Female, 59 years old. lumbago COMPARISON: None TECHNIQUE: MRI of the lumbar spine was performed without IV contrast. FINDINGS: Preserved vertebral body height. 0.8 cm anterolisthesis of L5 on S1. L5 spondylolyses are not confirmed. L5-S1 marrow edema, likely related to the significant disc disease at this level. T12/L1: Shallow diffuse disc bulge. Patent canal and foramina. L1/2:No canal or foraminal stenosis. L2/3: Shallow diffuse disc bulge. Facet hypertrophy and ligamentum flavum thickening. Patent canal. Mild bilateral foraminal stenosis. L3/4: Shallow diffuse disc bulge and facet and ligamentum flavum hypertrophy. Patent canal. Mild bilateral foraminal stenosis. L4/5: Facet and ligamentum flavum hypertrophy and shallow diffuse disc bulge. Moderate bilateral foraminal encroachment. Mild canal stenosis. L5/S1: Degenerative disc disease. Severe facet hypertrophy along with the anterolisthesis of L5 causes severe canal stenosis and severe bilateral lateral recess stenoses. Small amount of prevertebral edema or fluid. IMPRESSION: Degenerative changes. Severe canal stenosis at L5/S1 related to grade 1 anterolisthesis of L5 and facet hypertrophy. Significant edema in the L5 and S1 vertebral bodies and small amount of prevertebral fluid/edema here. While this may simply be reactive and degenerative in nature, discitis/osteomyelitis would be difficult to exclude. Follow-up postcontrast lumbar spine MRI images may prove useful for further characterization. Electronically signed by: Thad Powers MD 01/19/2025 03:56 PM EDT RP Dictated By: Thad Powers Transcribed By: Transcribed On: 01/19/2025 3:22 PM Electronically signed by: Thad Powers 01/19/2025 [address] for referring RD BENAVIDES to [facility]. Legally authenticated by HELENA MARCELO MD 2025-01-19 15:22:18 PATHOLOGY NARRATIVE RESULTS Information is not available MICROBIOLOGY RESULTS No Micro Labs/Results Exist for Patient BLOOD ADMIN RESULTS Information is not available MEDICATIONS HOME MEDICATIONS Status RXNORM NDC Medication Dose Route Frequency Dates Comments Reported By Updated By Drug Treatment Unknown DISCHARGE MEDICATIONS Status RXNORM NDC Medication Dose Route Frequency Dates Dis pense Data Comments Physician Updated By No Discharge Medication Info rmation Available INPATIENT MEDICATIONS Status RXNORM NDC Medication Dose Route Frequency Rat e Quantity Dates Indication Dispense Data Comments Physician Updated By No Inpatient Medication Info rmation Available SOCIAL HISTORY SOCIAL HISTORY - Smoking Status SNOMED-CT Social History Element Description Effective Dates Offered Cessation Comment Updated By [id number] Smoking Status Unknown If Ever Smoked SOCIAL HISTORY - Gender Sex: Female SOCIAL HISTORY - Status : status i nformation is not available Intention in Next Year: intention information is not available SOCIAL HISTORY - Assessments Code System Description Status Date Value of Assessment Updated By Comment Assessment Information is no t available SOCIAL HISTORY - Nightmute Affiliation Nightmute information is not av ailable SOCIAL HISTORY - Legal Sex Legal Sex information is not available SOCIAL HISTORY - Sexual Behavior Sexual Orientation Gender Identity SNOMED-CT Description SNO MED -CT Description Activity Level No of Partners Partner Type UpdatedBy Information is not available SOCIAL HISTORY - Occupation Occupation information is no t available HEALTH CONCERNS Problems Concern Status Health Concern problem infor mation not available. Smoking Status Status Years Used Consumed packs p er day Health Concern smoking histo ry information not available. Family History Concern Status Health Concern family histor y information not available. ENCOUNTERS ENCOUNTER INFORMATION Reason for Visit M54.41 Admission January 19, 2025 6:08:[address] [address] Discharge January 19, 2025 6:08:00 PM [facility] DISCHARGED TO HOME OR SELF CARE ENCOUNTER DIAGNOSES Notes information is not lacie ilable. Code System Diagnosis Onset Date Diagnosis information is not available. ABSTRACT DIAGNOSES Code System Diagnosis Updated By Abatement Date M54.41 ICD10 LUMBAGO WITH SCI ATICA, RIGHT SIDE [id number] on January 21, 2025 4:53:23 AM [facility] M54.42 ICD10 LUMBAGO WITH SCI ATICA, LEFT SIDE [id number] on January 21, 2025 4:53:23 AM [facility] G89.29 ICD10 OTHER CHRONIC PAIN [id number] o n January 21, 2025 4:53:23 AM [facility] M48.061 ICD10 SPINAL STENOSIS, LUMBAR REGION WITHOUT NEUROGENIC CLAUDICATION [id number] on January 21, 2025 4:53:23 AM [facility] M43.16 ICD10 SPONDYLOLISTHESI S, LUMBAR REGION [id number] on January 21, 2025 4:53:23 AM [facility] 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, LUMBAR REGION [id number] on January 21, 2025 4:53:23 AM [facility] R60.0 ICD10 LOCALIZED EDEMA [id number] on S [facility] 2024 4:53:23 AM [facility] CARE TEAM Care Inspector Wire Products Role JUAN CARLOS POWELL Primary Attending JUAN CARLOS POWELL Admitting FRANCISCO CHISHOLM Primary Care JUAN CARLOS POWELL Referring CARE TEAM CARE deck hand Role on Team Location Telecom Status Start Date End Harry e Updated By PHAN SINGH MD PCP normal January 14, 2025 6:32:57 PM UTC January 19, 2025 6:08:00 PM UTC [id number] on January 14, 2025 6:32:57 PM UTC SHERRY Ng APRN Referring normal January 14, 2025 6:32:57 PM UTC January 19, 2025 6:08:00 PM UTC [id number] on January 14, 2025 6:32:57 PM UTC SHERRY Ng APRN Attending normal January 14, 2025 6:32:57 PM UTC January 19, 2025 6:08:00 PM UTC [id number] on January 14, 2025 6:32:57 PM UTC SHERRY Ng APRN Admitting normal January 14, 2025 6:32:57 PM UTC January 19, 2025 6:08:00 PM UTC [id number] on January 14, 2025 6:32:57 PM UTC
--- OUTSIDE RECORDS SUMMARY | 2025-02-10 08:15 | XMS_ITS ---
Author Organization [facility] D KIMI Address [address] [facility] [address] [place] [address] Care Team Providers Care Tie Puller Name Role Phone SincerelamMichael Primary Care Provider [phone] Flavia Flowers Nancy [phone] Allergies Allergen (clinical drug ingredient) Drug/Non Drug Allergy documented on EMR Reaction Allergy Type Onset Date Status Penicillin Unknown Drug Allergy Active Results Component Value Reference Range Notes RHEUMATOID FACTOR, IGA BY EI A Reviewed date:02/19/2025 08:29:18 PM Interpretation: Performing Lab: Notes/Report: RHEUMATOID FACTOR LEVEL IGA <7 <7 U Performed at: [facility] [address] [place] [address] [id number] Technical Education Teacher: Jerry Molina MD, Phone: [phone] Note Unless otherwise noted testing performed at: [address] [address] Jai Mosley MD CLIA: [id number] CBC AUTO W DIFF Reviewed date:02/15/2025 09:29:16 AM Interpretation: Performing Lab: Notes/Report: WBC 5.8 4.5-11.5 10 RBC 4.45 4.25-5.57 10 HGB 13.5 12.0-15.7 g/dL HCT 38.6 36.0-47.0 % MCV 86.7 80-95 fl MCH 30.3 27.0-34.0 pg MCHC 35.0 32.0-36.0 g/dL PLATELET COUNT 383 150-450 10 RDW 11.8 12.3-15.1 % MPV 9.0 7.4-10.4 fl GRANULOCYTE% 40.9 40-75 % LYMPHOCYTE% 44.9 15-57 % MONOCYTE% 10.7 4.0-12.0 % EOSINOPHIL% 2.4 0.0-4.0 % BASOPHIL% 0.9 0.0-1.0 % IMMATURE GRANULOCYTES % 0.2 0.0-0.8 % GRANULOCYTE# 2.37 LYMPHOCYTE# 2.60 MONOCYTE# 0.62 EOSINOPHIL# 0.14 BASOPHIL# 0.05 IMMATURE GRANULOCYTES # 0.01 MANUAL DIFFERENTIAL NO Note Unless otherwise noted testing performed at: [place] [address] Jai Mosley MD CLIA: [id number] URIC ACID Reviewed date:02/10/2025 05:04:29 PM Interpretation: Performing Lab: Notes/Report: URIC ACID 4.3 2.2-7.7 mg/dL Note Unless otherwise noted testing performed at: [place] [address] Jai Mosley MD CLIA: [id number] HEMOGLOBIN A1C Reviewed date:02/10/2025 05:04:37 PM Interpretation: Performing Lab: Notes/Report: GLYCOSYLATED HEMOGLOBIN A1C 6.0 4.5-6.2 % ESTIMATED AVERAGE GLUCOSE 126 82-131 mg/dl Note Unless otherwise noted testing performed at: [address] [address] Jai Mosley MD CLIA: [id number] C-REACTIVE PROTEIN Reviewed date:02/10/2025 05:04:22 PM Interpretation: Performing Lab: Notes/Report: C-REACTIVE PROTEIN, QUANT 0.30 0.05-0.300 mg/d L Note Unless otherwise noted testing performed at: [address] [address] Jai Mosley MD CLIA: [id number] SEDIMENTATION RATE Reviewed date:02/10/2025 05:04:44 PM Interpretation: Performing Lab: Notes/Report: SEDIMENTATION RATE 10 0-30 mm/Hr Note Unless otherwise noted testing performed at: [address] [address] Jai Mosley MD CLIA: [id number] THYROID STIMULATING HORMONE Reviewed date:02/15/2025 09:29:16 AM Interpretation: Performing Lab: Notes/Report: THYROID STIMULATING HORMONE 0.01 0.34-4.80 mIU /mL Note Unless otherwise noted testing performed at: [address] [address] Jai Mosley MD CLIA: [id number] COMP METABOLIC PANEL Reviewed date:02/15/2025 09:29:15 AM Interpretation: Performing Lab: Notes/Report: SODIUM 139 136-145 mmol/L POTASSIUM 3.9 3.5-5.1 mmol/L CHLORIDE 103 98-107 mmol/L CARBON DIOXIDE 29 21-32 mmol/L ANION GAP 7.0 GLUCOSE 101 70-110 mg/dL BLOOD UREA NITROGEN 15 7-18 mg/dL CREATININE 0.6 0.6-1.0 mg/dL BUN/CREATININE RATIO 25.0 9-21 ESTIMATED GLOM FILTRATION RATE 103 >60- mL/mi n GFR LIMITATION: The eGFR equation CKD-EPI 2020 is not applicable for pediatric patients or greater than 90 years of age. The following conditions may alter the GFR result: extremes in body size, malnutrition or obesity, skeletal muscle disease, paraplegia or quadriplegia, vegetarian diet or rapidly changing kiney function. OSMOLALITY (CALCULATED) 290 275-301 mosm/kg OSMOLALITY IS A CALCULATION UTILIZING THE SERUM/PLASMA SODIUM, GLUCOSE AND UREA NITROGEN (BUN) LEVELS. FOR THE MOST ACCURATE RESULT A MEASURED SERUM OSMOLALITY IS SUGGESTED. TOTAL PROTEIN 6.9 6.4-8.2 g/dL ALBUMIN 3.7 3.4-5.0 g/dL CALCIUM 9.5 8.5-10.1 mg/dL CORRECTED CALCIUM 9.7 8.5-10.1 mg/dL BILIRUBIN TOTAL 0.6 0.4-1.5 mg/dL AST (SGOT) 23 15-37 U/L ALT (SGPT) 34 12-78 U/L ALK PHOSPHATASE 123 37-110 U/L Note Unless otherwise noted testing performed at: [address] [address] Jai Mosley MD CLIA: [id number] REASON FOR VISIT med ck- labs Medications Medication SIG (Take, Route, Frequency, Duration) Notes Start Date End Date Status CALCIUM WITH VITAMIN D3 500 MG-10 MCG 1 TAB(S) CHEWED 2 TIMES A DAY; Duration: 30 DAYS *Please review for potential replacement for e-prescription and drug interaction check* Active Multivitamin MULTIPLE VITAMINS 1 CAP(S) ORALLY ONCE A DAY; Duration: 30 DAY(S) *Please review and pick correct strength-formulati on from [employer] options. If intended option is not shown, discontinue and re-order from Quick Search* Active Levothyroxine Sodium 150 MCG TAKE 1 TABLET BY MOUTH EVERY MORNING ON AN EMPTY STOMACH; Duration: 90 Active Losartan Potassium 50 MG 1 tablet Orally Once a day; Duration: 30 days Active Levocetirizine Dihydrochloride 5 MG 1 tablet in the evening Orally Once a day; Duration: 90 days 11/12/2024 Active Temazepam 15 MG 1 cap(s) orally once a day (at bedtime); Duration: 30 days 11/10/2024 Active Meloxicam 15 MG 1 tab(s) orally once a day; Duration: 30 days Active Problems Problem Type SNOMED Code ICD Code Onset Dates Problem Status W/U Status Risk Notes Problem Lumbar discitis () Lumbar discitis (M46.46) Active confirmed Vital Signs Temperature 98 degrees Fahrenheit 02/10/2025 Blood pressure systolic 132 mm Hg 02/11/20 25 Blood pressure diastolic 80 mm Hg 025 Heart Rate 84 /min 02/10/2025 Height 5 ft 3 in in 02/10/2025 Weight 128 lbs 02/10/2025 BMI 22.67 kg/m2 02/10/2025 Encounters Encounter Location Date Provider Diagnosis [address] [address] 02/10/2025 Flavia Kristie Essential hypertensi on I10 ; Lumbago with sciatica, right side M54.41 ; Lumbago with sciatica, left side M54.42 ; Other chronic pain G89.29 ; Pain in right hand M79.641 ; Pain in left hand M79.642 ; Lumbar discitis M46.46 ; Hypothyroidism (acquired) E03.9 and Prediabetes R73.03 Assessments Encounter Date Diagnosis (ICD Code) Assessment Notes Treatment Notes Treatment Clinical Notes Section Notes 02/10/2025 Essential hypertension (ICD-10 - I10) Pressure today is much better, continue losartan She is due for monitoring labs which we will obtain today along with inflammatory labs to help evaluate possible discitis. 02/10/2025 Lumbago with sciatica, right side (ICD-10 - M54.41) She has had plain imaging within the past year which shows anterior listhesis of the lower lumbar spine. Has completed physical therapy. Already taking NSAIDs and using ice but has persistent symptoms that are disrupting her daily activity and sleep. 02/10/2025 Lumbago with sciatica, left side (ICD-10 - M54.42) 02/10/2025 Other chronic pain (ICD-10 - G89.29) 02/10/2025 Pain in right hand (ICD-10 - M79.641) + FH of RA (Father). Low titer positive RINKU earlier this year, neg RF and CCP. Will repeat RF today along with inflammatory markers as noted 02/10/2025 Pain in left hand (ICD-10 - M79.642) 02/10/2025 Lumbar discitis (ICD-10 - M46.46) MRI indicates extensive degenerative changes with severe stenosis at L5/S1. Also notes significant edema in the L5 and S1 vertebral bodies which could be degenerative in nature but discitis/osteomy elitis would be difficult to exclude and radiologist recommends follow-up postcontrast lumbar spine MRI for additional information. Agree with recommendation. Will obtain labs today as noted and arrange for MRI LS spine with contrast. 02/10/2025 Hypothyroidism (acquired) (ICD-10 - E03.9) 02/10/2025 Prediabetes (ICD-10 - R73.03) Plan Of Treatment Medication Medication Name Sig Start Date Stop Date Notes Losartan Potassium 50 MG 1 tablet Orally Once a day; Duration: 30 days Pending Test Test Name Order Date FREE T4 ([facility]) 02/10/2025 Next Appt Details Follow Up: pending results, Reason: Provider Name:Flavia cazares, 05/05/2025 11:00:00 AM, [address] [place] [address], [id number], Progress Notes * Kirstin JULIAN LDOB: 6 (59 yo F)Acc No.[id number]:02/10/2025 Progress Notes Patient: Kirstin PATIÑO Provider: IOANA Contreras :1965 A ge:59 Y S ex:Female Date:02/10/2025 Address:[address] [place] [id number] Pcp:Michael Patel Subjective: * Chief Complaints: * 1 . Med ck- labs. * HPI: g en: 59-year-old female presents today to follow-up since initiating losartan for management of hypertension. She reports that she feels much better overall with no headaches recently and improved energy. Has not noticed any medication side effects. Has not checked her blood pressure any outside of the office since our last visit. No chest pain or shortness of breath. She does report persistent lower back pain with radicular symptoms into both lower extremities. We discussed this last visit and obtained an MRI which indicates extensive degenerative disc disease, severe narrowing in the lower spine and also concern for discitis. We are still having issues getting insurance coverage of a contrasted study which was recommended by the radiologist. She denies fevers, recent illness, wounds. Did PT at [facility] earlier this year and has been trying [...] *Please review and pick correct strength-formulation from [employer] options. If intended option is not shown, discontinue and re-order from Quick Search*, Taking CALCIUM WITH VITAMIN D3 500 MG-10 MCG TABLET, CHEWABLE 1 TAB(S) CHEWED 2 TIMES A DAY , Notes to Pharmacist: *Please review for potential replacement for e-prescription and drug interaction check*, Taking Meloxicam 15 MG Tablet 1 tab(s) orally once a day , Taking Temazepam 15 MG Capsule 1 cap(s) orally once a day (at bedtime) , Taking Levocetirizine Dihydrochloride 5 MG Tablet 1 tablet in the evening Orally Once a day , Taking Losartan Potassium 50 MG Tablet 1 tablet Orally Once a day , Taking Levothyroxine Sodium 150 MCG Tablet TAKE 1 TABLET BY MOUTH EVERY MORNING ON AN EMPTY STOMACH , Medication List reviewed and reconciled with the patient * Allergies: P enicillin. Objective: * Vitals: N urse: dw, Pain: 3, Temp: 98, RR: 16, HR: 84, BP: 132/80, Ht: 5 ft 3 in, Wt: 128, BMI:22.67. * Examination: G eneral Examination: General P leasant and Cooperative, NAD on RA,. Oral cavity: M oist membranes. Heart: R egular Rate and Rhythm, no murmur, rubs or gallops. Lungs: c lear to auscultation,. Abdomen: s oft, +BS. Back: m ildly tender LS spine, 1+ patellar reflexes, + SLR on the right. Extremities: s oft swelling right hand over the thumb CMC joint. neck s upple,, no thyromegaly,, no lymphadenopathy,. Psych N ormal Mood/Affect. Assessment: * Assessment: 1. E ssential hypertension - I10 (Primary) 2 . L umbago with sciatica, right side - M54.41 3 . L umbago with sciatica, left side - M54.42 4 . O ther chronic pain - G89.29 5 . P ain in right hand - M79.641 6 . P ain in left hand - M79.642 7 . L umbar discitis - M46.46 ? 8 . H ypothyroidism (acquired) - E03.9 9 . P rediabetes - R73.03? Plan: * Treatment: Value Reference Range S ODIUM 139 136-145 - mmol/L * P OTASSIUM 3.9 3.5-5.1 - mmol/L * C HLORIDE 103 98-107 - mmol/L * C ARBON DIOXIDE 29 21-32 - mmol/L * A NION GAP 7.0 - * G LUCOSE 101 70-110 - mg/dL * B LOOD UREA NITROGEN 15 7-18 - mg/dL * C REATININE 0.6 0.6-1.0 - mg/dL * B UN/CREATININE RATIO 25.0 H 9-21 - * E STIMATED GLOM FILTRATION RATE 103 >60- - mL/ min * T OTAL PROTEIN 6.9 6.4-8.2 - g/dL * A LBUMIN 3.7 3.4-5.0 - g/dL * C ALCIUM 9.5 8.5-10.1 - mg/dL * C ORRECTED CALCIUM 9.7 8.5-10.1 - mg/dL * B ILIRUBIN TOTAL 0.6 0.4-1.5 - mg/dL * A ST (SGOT) 23 15-37 - U/L * A LT (SGPT) 34 12-78 - U/L * A LK PHOSPHATASE 123 H 37-110 - U/L * O SMOLALITY (CALCULATED) 290 275-301 - mosm/kg * Leo Bagley R 02/15/2025 0 9:29:06 AM EDT > pt notifiedThis lab was reviewed by Leo Bagley on 02/15/2025 at 09:29 AM EDT ?LAB: C-REACTIVE PROTEIN* Value Reference Range C -REACTIVE PROTEIN, QUANT 0.30 0.05-0.300 - mg /dL * This lab was reviewed by Haseeb Flowers on 02/10/2025 at 17:04 PM EDT ?LAB: HEMOGLOBIN A1C* Value Reference Range G LYCOSYLATED HEMOGLOBIN A1C 6.0 4.5-6.2 - % * E STIMATED AVERAGE GLUCOSE 126 82-131 - mg/dl * This lab was reviewed by Haseeb Flowers on 02/10/2025 at 17:04 PM EDT ?LAB: THYROID STIMULATING HORMONE* Value Reference Range T HYROID STIMULATING HORMONE 0.01 L 0.34-4.80 - m IU/mL * Leo Bagley R 02/15/2025 0 9:29:06 AM EDT > pt notifiedThis lab was reviewed by Leo Bagley on 02/15/2025 at 09:29 AM EDT ?LAB: URIC ACID* Value Reference Range U CHE ACID 4.3 2.2-7.7 - mg/dL * This lab was reviewed by Haseeb Flowers on 02/10/2025 at 17:04 PM EDT ?LAB: CBC AUTO W DIFF* Value Reference Range W BC 5.8 4.5-11.5 - 10 * R BC 4.45 4.25-5.57 - 10 * H GB 13.5 12.0-15.7 - g/dL * H CT 38.6 36.0-47.0 - % * M CV 86.7 80-95 - fl * M CH 30.3 27.0-34.0 - pg * M CHC 35.0 32.0-36.0 - g/dL * P LATELET COUNT 383 150-450 - 10 * R DW 11.8 L 12.3-15.1 - % * M PV 9.0 7.4-10.4 - fl * G RANULOCYTE% 40.9 40-75 - % * L YMPHOCYTE% 44.9 15-57 - % * M ONOCYTE% 10.7 4.0-12.0 - % * E OSINOPHIL% 2.4 0.0-4.0 - % * B ASOPHIL% 0.9 0.0-1.0 - % * I MMATURE GRANULOCYTES % 0.2 0.0-0.8 - % * G RANULOCYTE# 2.37 - 10 * L YMPHOCYTE# 2.60 - 10 * M ONOCYTE# 0.62 - 10 * E OSINOPHIL# 0.14 - 10 * B ASOPHIL# 0.05 - 10 * I MMATURE GRANULOCYTES # 0.01 - 10 * M ANUAL DIFFERENTIAL NO - * Leo Bagley 02/15/2025 0 9:29:06 AM EDT > pt notifiedThis lab was reviewed by Leo Bagley on 02/15/2025 at 09:29 AM EDT ?LAB: SEDIMENTATION RATE* Value Reference Range S EDIMENTATION RATE 10 0-30 - mm/Hr * This lab was reviewed by Haseeb Flowers on 02/10/2025 at 17:04 PM EDT Clinical Notes: Pressure today is much better, continue losartan She is due for monitoring labs which we will obtain today along with inflammatory labs to help evaluate possible discitis.??2.?Lumbago with sciatica, right side? Clinical Notes: She has had plain imaging within the past year which shows anterior listhesis of the lower lumbar spine. Has completed physical therapy. Already taking NSAIDs and using ice but has persistent symptoms that are disrupting her daily activity and sleep. ??3.?Other chronic pain?LAB: COMP METABOLIC PANEL* Value Reference Range S ODIUM 139 136-145 - mmol/L * P OTASSIUM 3.9 3.5-5.1 - mmol/L * C HLORIDE 103 98-107 - mmol/L * C ARBON DIOXIDE 29 21-32 - mmol/L * A NION GAP 7.0 - * G LUCOSE 101 70-110 - mg/dL * B LOOD UREA NITROGEN 15 7-18 - mg/dL * C REATININE 0.6 0.6-1.0 - mg/dL * B UN/CREATININE RATIO 25.0 H 9-21 - * E STIMATED GLOM FILTRATION RATE 103 >60- - mL/ min * T OTAL PROTEIN 6.9 6.4-8.2 - g/dL * A LBUMIN 3.7 3.4-5.0 - g/dL * C ALCIUM 9.5 8.5-10.1 - mg/dL * C ORRECTED CALCIUM 9.7 8.5-10.1 - mg/dL * B ILIRUBIN TOTAL 0.6 0.4-1.5 - mg/dL * A ST (SGOT) 23 15-37 - U/L * A LT (SGPT) 34 12-78 - U/L * A LK PHOSPHATASE 123 H 37-110 - U/L * O SMOLALITY (CALCULATED) 290 275-301 - mosm/kg * Leo Bagley 02/15/2025 0 9:29:06 AM EDT > pt notifiedThis lab was reviewed by Leo Bagley on 02/15/2025 at 09:29 AM EDT ?LAB: C-REACTIVE PROTEIN* Value Reference Range C -REACTIVE PROTEIN, QUANT 0.30 0.05-0.300 - mg /dL * This lab was reviewed by Haseeb Flowers on 02/10/2025 at 17:04 PM EDT ?LAB: HEMOGLOBIN A1C* Value Reference Range G LYCOSYLATED HEMOGLOBIN A1C 6.0 4.5-6.2 - % * E STIMATED AVERAGE GLUCOSE 126 82-131 - mg/dl * This lab was reviewed by Haseeb Flowers on 02/10/2025 at 17:04 PM EDT ?LAB: THYROID STIMULATING HORMONE* Value Reference Range T HYROID STIMULATING HORMONE 0.01 L 0.34-4.80 - m IU/mL * Leo Bagley 02/15/2025 0 9:29:06 AM EDT > pt notifiedThis lab was reviewed by Leo Bagley on 02/15/2025 at 09:29 AM EDT ?LAB: URIC ACID* Value Reference Range U CHE ACID 4.3 2.2-7.7 - mg/dL * This lab was reviewed by Haseeb Flowers on 02/10/2025 at 17:04 PM EDT ?LAB: CBC AUTO W DIFF* Value Reference Range W BC 5.8 4.5-11.5 - 10 * R BC 4.45 4.25-5.57 - 10 * H GB 13.5 12.0-15.7 - g/dL * H CT 38.6 36.0-47.0 - % * M CV 86.7 80-95 - fl * M CH 30.3 27.0-34.0 - pg * M CHC 35.0 32.0-36.0 - g/dL * P LATELET COUNT 383 150-450 - 10 * R DW 11.8 L 12.3-15.1 - % * M PV 9.0 7.4-10.4 - fl * G RANULOCYTE% 40.9 40-75 - % * L YMPHOCYTE% 44.9 15-57 - % * M ONOCYTE% 10.7 4.0-12.0 - % * E OSINOPHIL% 2.4 0.0-4.0 - % * B ASOPHIL% 0.9 0.0-1.0 - % * I MMATURE GRANULOCYTES % 0.2 0.0-0.8 - % * G RANULOCYTE# 2.37 - 10 * L YMPHOCYTE# 2.60 - 10 * M ONOCYTE# 0.62 - 10 * E OSINOPHIL# 0.14 - 10 * B ASOPHIL# 0.05 - 10 * I MMATURE GRANULOCYTES # 0.01 - 10 * M ANUAL DIFFERENTIAL NO - * Leo Bagley 02/15/2025 0 9:29:06 AM EDT > pt notifiedThis lab was reviewed by Leo Bagley on 02/15/2025 at 09:29 AM EDT ?LAB: SEDIMENTATION RATE* Value Reference Range S EDIMENTATION RATE 10 0-30 - mm/Hr * This lab was reviewed by Haseeb Flowers on 02/10/2025 at 17:04 PM EDT 4.?Pain in right hand?LAB: COMP METABOLIC PANEL* Value Reference Range S ODIUM 139 136-145 - mmol/L * P OTASSIUM 3.9 3.5-5.1 - mmol/L * C HLORIDE 103 98-107 - mmol/L * C ARBON DIOXIDE 29 21-32 - mmol/L * A NION GAP 7.0 - * G LUCOSE 101 70-110 - mg/dL * B LOOD UREA NITROGEN 15 7-18 - mg/dL * C REATININE 0.6 0.6-1.0 - mg/dL * B UN/CREATININE RATIO 25.0 H 9-21 - * E STIMATED GLOM FILTRATION RATE 103 >60- - mL/ min * T OTAL PROTEIN 6.9 6.4-8.2 - g/dL * A LBUMIN 3.7 3.4-5.0 - g/dL * C ALCIUM 9.5 8.5-10.1 - mg/dL * C ORRECTED CALCIUM 9.7 8.5-10.1 - mg/dL * B ILIRUBIN TOTAL 0.6 0.4-1.5 - mg/dL * A ST (SGOT) 23 15-37 - U/L * A LT (SGPT) 34 12-78 - U/L * A LK PHOSPHATASE 123 H 37-110 - U/L * O SMOLALITY (CALCULATED) 290 275-301 - mosm/kg * Leo Bagley 02/15/2025 0 9:29:06 AM EDT > pt notifiedThis lab was reviewed by Leo Bagley on 02/15/2025 at 09:29 AM EDT ?LAB: C-REACTIVE PROTEIN* Value Reference Range C -REACTIVE PROTEIN, QUANT 0.30 0.05-0.300 - mg /dL * This lab was reviewed by Haseeb Flowers on 02/10/2025 at 17:04 PM EDT ?LAB: HEMOGLOBIN A1C* Value Reference Range G LYCOSYLATED HEMOGLOBIN A1C 6.0 4.5-6.2 - % * E STIMATED AVERAGE GLUCOSE 126 82-131 - mg/dl * This lab was reviewed by Haseeb Flowers on 02/10/2025 at 17:04 PM EDT ?LAB: THYROID STIMULATING HORMONE* Value Reference Range T HYROID STIMULATING HORMONE 0.01 L 0.34-4.80 - m IU/mL * KevynMariluzta R 02/15/2025 0 9:29:06 AM EDT > pt notifiedThis lab was reviewed by Leo Bagley on 02/15/2025 at 09:29 AM EDT ?LAB: URIC ACID* Value Reference Range U CHE ACID 4.3 2.2-7.7 - mg/dL * This lab was reviewed by Haseeb Flowers on 02/10/2025 at 17:04 PM EDT ?LAB: CBC AUTO W DIFF* Value Reference Range W BC 5.8 4.5-11.5 - 10 * R BC 4.45 4.25-5.57 - 10 * H GB 13.5 12.0-15.7 - g/dL * H CT 38.6 36.0-47.0 - % * M CV 86.7 80-95 - fl * M CH 30.3 27.0-34.0 - pg * M CHC 35.0 32.0-36.0 - g/dL * P LATELET COUNT 383 150-450 - 10 * R DW 11.8 L 12.3-15.1 - % * M PV 9.0 7.4-10.4 - fl * G RANULOCYTE% 40.9 40-75 - % * L YMPHOCYTE% 44.9 15-57 - % * M ONOCYTE% 10.7 4.0-12.0 - % * E OSINOPHIL% 2.4 0.0-4.0 - % * B ASOPHIL% 0.9 0.0-1.0 - % * I MMATURE GRANULOCYTES % 0.2 0.0-0.8 - % * G RANULOCYTE# 2.37 - 10 * L YMPHOCYTE# 2.60 - 10 * M ONOCYTE# 0.62 - 10 * E OSINOPHIL# 0.14 - 10 * B ASOPHIL# 0.05 - 10 * I MMATURE GRANULOCYTES # 0.01 - 10 * M ANUAL DIFFERENTIAL NO - * KevynMariluzedward Irby 02/15/2025 0 9:29:06 AM EDT > pt notifiedThis lab was reviewed by Leo Bagley on 02/15/2025 at 09:29 AM EDT ?LAB: SEDIMENTATION RATE* Value Reference Range S EDIMENTATION RATE 10 0-30 - mm/Hr * This lab was reviewed by Haseeb Flowers on 02/10/2025 at 17:04 PM EDT ?LAB: RHEUMATOID FACTOR, IGA BY EIA* Value Reference Range R HEUMATOID FACTOR LEVEL IGA <7 <7 - U * This lab was reviewed by Haseeb Flowers on 02/19/2025 at 20:29 PM EDT Clinical Notes: + FH of RA (Father). Low titer positive RINKU earlier this year, neg RF and CCP. Willrepeat RF today along with inflammatory markers as noted?? 5.?Pain in left hand?LAB: COMP METABOLIC PANEL* Value Reference Range S ODIUM 139 136-145 - mmol/L * P OTASSIUM 3.9 3.5-5.1 - mmol/L * C HLORIDE 103 98-107 - mmol/L * C ARBON DIOXIDE 29 21-32 - mmol/L * A NION GAP 7.0 - * G LUCOSE 101 70-110 - mg/dL * B LOOD UREA NITROGEN 15 7-18 - mg/dL * C REATININE 0.6 0.6-1.0 - mg/dL * B UN/CREATININE RATIO 25.0 H 9-21 - * E STIMATED GLOM FILTRATION RATE 103 >60- - mL/ min * T OTAL PROTEIN 6.9 6.4-8.2 - g/dL * A LBUMIN 3.7 3.4-5.0 - g/dL * C ALCIUM 9.5 8.5-10.1 - mg/dL * C ORRECTED CALCIUM 9.7 8.5-10.1 - mg/dL * B ILIRUBIN TOTAL 0.6 0.4-1.5 - mg/dL * A ST (SGOT) 23 15-37 - U/L * A LT (SGPT) 34 12-78 - U/L * A LK PHOSPHATASE 123 H 37-110 - U/L * O SMOLALITY (CALCULATED) 290 275-301 - mosm/kg * Leo Bagley 02/15/2025 0 9:29:06 AM EDT > pt notifiedThis lab was reviewed by Leo Bagley on 02/15/2025 at 09:29 AM EDT ?LAB: C-REACTIVE PROTEIN* Value Reference Range C -REACTIVE PROTEIN, QUANT 0.30 0.05-0.300 - mg /dL * This lab was reviewed by Haseeb Flowers on 02/10/2025 at 17:04 PM EDT ?LAB: HEMOGLOBIN A1C* Value Reference Range G LYCOSYLATED HEMOGLOBIN A1C 6.0 4.5-6.2 - % * E STIMATED AVERAGE GLUCOSE 126 82-131 - mg/dl * This lab was reviewed by Haseeb Flowers on 02/10/2025 at 17:04 PM EDT ?LAB: THYROID STIMULATING HORMONE* Value Reference Range T HYROID STIMULATING HORMONE 0.01 L 0.34-4.80 - m IU/mL * Leo Bagley 02/15/2025 0 9:29:06 AM EDT > pt notifiedThis lab was reviewed by Leo Bagley on 02/15/2025 at 09:29 AM EDT ?LAB: URIC ACID* Value Reference Range U CHE ACID 4.3 2.2-7.7 - mg/dL * This lab was reviewed by Haseeb Flowers on 02/10/2025 at 17:04 PM EDT ?LAB: CBC AUTO W DIFF* Value Reference Range W BC 5.8 4.5-11.5 - 10 * R BC 4.45 4.25-5.57 - 10 * H GB 13.5 12.0-15.7 - g/dL * H CT 38.6 36.0-47.0 - % * M CV 86.7 80-95 - fl * M CH 30.3 27.0-34.0 - pg * M CHC 35.0 32.0-36.0 - g/dL * P LATELET COUNT 383 150-450 - 10 * R DW 11.8 L 12.3-15.1 - % * M PV 9.0 7.4-10.4 - fl * G RANULOCYTE% 40.9 40-75 - % * L YMPHOCYTE% 44.9 15-57 - % * M ONOCYTE% 10.7 4.0-12.0 - % * E OSINOPHIL% 2.4 0.0-4.0 - % * B ASOPHIL% 0.9 0.0-1.0 - % * I MMATURE GRANULOCYTES % 0.2 0.0-0.8 - % * G RANULOCYTE# 2.37 - 10 * L YMPHOCYTE# 2.60 - 10 * M ONOCYTE# 0.62 - 10 * E OSINOPHIL# 0.14 - 10 * B ASOPHIL# 0.05 - 10 * I MMATURE GRANULOCYTES # 0.01 - 10 * M ANUAL DIFFERENTIAL NO - * Leo Bagley 02/15/2025 0 9:29:06 AM EDT > pt notifiedThis lab was reviewed by Leo Bagley on 02/15/2025 at 09:29 AM EDT ?LAB: SEDIMENTATION RATE* Value Reference Range S EDIMENTATION RATE 10 0-30 - mm/Hr * This lab was reviewed by Haseeb Flowers on 02/10/2025 at 17:04 PM EDT ?LAB: RHEUMATOID FACTOR, IGA BY EIA* Value Reference Range R HEUMATOID FACTOR LEVEL IGA <7 <7 - U * This lab was reviewed by Haseeb Flowers on 02/19/2025 at 20:29 PM EDT 6.?Lumbar discitis?LAB: COMP METABOLIC PANEL* Value Reference Range S ODIUM 139 136-145 - mmol/L * P OTASSIUM 3.9 3.5-5.1 - mmol/L * C HLORIDE 103 98-107 - mmol/L * C ARBON DIOXIDE 29 21-32 - mmol/L * A NION GAP 7.0 - * G LUCOSE 101 70-110 - mg/dL * B LOOD UREA NITROGEN 15 7-18 - mg/dL * C REATININE 0.6 0.6-1.0 - mg/dL * B UN/CREATININE RATIO 25.0 H 9-21 - * E STIMATED GLOM FILTRATION RATE 103 >60- - mL/ min * T OTAL PROTEIN 6.9 6.4-8.2 - g/dL * A LBUMIN 3.7 3.4-5.0 - g/dL * C ALCIUM 9.5 8.5-10.1 - mg/dL * C ORRECTED CALCIUM 9.7 8.5-10.1 - mg/dL * B ILIRUBIN TOTAL 0.6 0.4-1.5 - mg/dL * A ST (SGOT) 23 15-37 - U/L * A LT (SGPT) 34 12-78 - U/L * A LK PHOSPHATASE 123 H 37-110 - U/L * O SMOLALITY (CALCULATED) 290 275-301 - mosm/kg * Leo Bagley Mahamed 02/15/2025 0 9:29:06 AM EDT > pt notifiedThis lab was reviewed by Leo Bagley on 02/15/2025 at 09:29 AM EDT ?LAB: C-REACTIVE PROTEIN* Value Reference Range C -REACTIVE PROTEIN, QUANT 0.30 0.05-0.300 - mg /dL * This lab was reviewed by Haseeb Flowers on 02/10/2025 at 17:04 PM EDT ?LAB: HEMOGLOBIN A1C* Value Reference Range G LYCOSYLATED HEMOGLOBIN A1C 6.0 4.5-6.2 - % * E STIMATED AVERAGE GLUCOSE 126 82-131 - mg/dl * This lab was reviewed by Haseeb Flowers on 02/10/2025 at 17:04 PM EDT ?LAB: THYROID STIMULATING HORMONE* Value Reference Range T HYROID STIMULATING HORMONE 0.01 L 0.34-4.80 - m IU/mL * Leo Bagley Mahamed 02/15/2025 0 9:29:06 AM EDT > pt notifiedThis lab was reviewed by Leo Bagley on 02/15/2025 at 09:29 AM EDT ?LAB: URIC ACID* Value Reference Range U CHE ACID 4.3 2.2-7.7 - mg/dL * This lab was reviewed by Haseeb Flowers on 02/10/2025 at 17:04 PM EDT ?LAB: CBC AUTO W DIFF* Value Reference Range W BC 5.8 4.5-11.5 - 10 * R BC 4.45 4.25-5.57 - 10 * H GB 13.5 12.0-15.7 - g/dL * H CT 38.6 36.0-47.0 - % * M CV 86.7 80-95 - fl * M CH 30.3 27.0-34.0 - pg * M CHC 35.0 32.0-36.0 - g/dL * P LATELET COUNT 383 150-450 - 10 * R DW 11.8 L 12.3-15.1 - % * M PV 9.0 7.4-10.4 - fl * G RANULOCYTE% 40.9 40-75 - % * L YMPHOCYTE% 44.9 15-57 - % * M ONOCYTE% 10.7 4.0-12.0 - % * E OSINOPHIL% 2.4 0.0-4.0 - % * B ASOPHIL% 0.9 0.0-1.0 - % * I MMATURE GRANULOCYTES % 0.2 0.0-0.8 - % * G RANULOCYTE# 2.37 - 10 * L YMPHOCYTE# 2.60 - 10 * M ONOCYTE# 0.62 - 10 * E OSINOPHIL# 0.14 - 10 * B ASOPHIL# 0.05 - 10 * I MMATURE GRANULOCYTES # 0.01 - 10 * M ANUAL DIFFERENTIAL NO - * Leo Bagley 02/15/2025 0 9:29:06 AM EDT > pt notifiedThis lab was reviewed by Leo Bagley on 02/15/2025 at 09:29 AM EDT ?LAB: SEDIMENTATION RATE* Value Reference Range S EDIMENTATION RATE 10 0-30 - mm/Hr * This lab was reviewed by Haseeb Flowers on 02/10/2025 at 17:04 PM EDT Clinical Notes: MRI indicates extensive degenerative changes with severe stenosis at L5/S1. Also notes significant edema in the L5 and S1 vertebral bodies which could be degenerative in nature but discitis/osteomyelitis would be difficult to exclude and radiologist recommends follow-up postcontrast lumbar spine MRI for additional information. Agree with recommendation. Will obtain labs today asnoted and arrange for MRI LS spine with contrast.?? 7.?Hypothyroidism (acquired)?LAB: COMP METABOLIC PANEL* Value Reference Range S ODIUM 139 136-145 - mmol/L * P OTASSIUM 3.9 3.5-5.1 - mmol/L * C HLORIDE 103 98-107 - mmol/L * C ARBON DIOXIDE 29 21-32 - mmol/L * A NION GAP 7.0 - * G LUCOSE 101 70-110 - mg/dL * B LOOD UREA NITROGEN 15 7-18 - mg/dL * C REATININE 0.6 0.6-1.0 - mg/dL * B UN/CREATININE RATIO 25.0 H 9-21 - * E STIMATED GLOM FILTRATION RATE 103 >60- - mL/ min * T OTAL PROTEIN 6.9 6.4-8.2 - g/dL * A LBUMIN 3.7 3.4-5.0 - g/dL * C ALCIUM 9.5 8.5-10.1 - mg/dL * C ORRECTED CALCIUM 9.7 8.5-10.1 - mg/dL * B ILIRUBIN TOTAL 0.6 0.4-1.5 - mg/dL * A ST (SGOT) 23 15-37 - U/L * A LT (SGPT) 34 12-78 - U/L * A LK PHOSPHATASE 123 H 37-110 - U/L * O SMOLALITY (CALCULATED) 290 275-301 - mosm/kg * Leo Bagley R 02/15/2025 0 9:29:06 AM EDT > pt notifiedThis lab was reviewed by Leo Bagley on 02/15/2025 at 09:29 AM EDT ?LAB: C-REACTIVE PROTEIN* Value Reference Range C -REACTIVE PROTEIN, QUANT 0.30 0.05-0.300 - mg /dL * This lab was reviewed by Haseeb Flowers on 02/10/2025 at 17:04 PM EDT ?LAB: HEMOGLOBIN A1C* Value Reference Range G LYCOSYLATED HEMOGLOBIN A1C 6.0 4.5-6.2 - % * E STIMATED AVERAGE GLUCOSE 126 82-131 - mg/dl * This lab was reviewed by Haseeb Flowers on 02/10/2025 at 17:04 PM EDT ?LAB: THYROID STIMULATING HORMONE* Value Reference Range T HYROID STIMULATING HORMONE 0.01 L 0.34-4.80 - m IU/mL * Leo Bagley 02/15/2025 0 9:29:06 AM EDT > pt notifiedThis lab was reviewed by Leo Bagley on 02/15/2025 at 09:29 AM EDT ?LAB: URIC ACID* Value Reference Range U CHE ACID 4.3 2.2-7.7 - mg/dL * This lab was reviewed by Haseeb Flowers on 02/10/2025 at 17:04 PM EDT ?LAB: CBC AUTO W DIFF* Value Reference Range W BC 5.8 4.5-11.5 - 10 * R BC 4.45 4.25-5.57 - 10 * H GB 13.5 12.0-15.7 - g/dL * H CT 38.6 36.0-47.0 - % * M CV 86.7 80-95 - fl * M CH 30.3 27.0-34.0 - pg * M CHC 35.0 32.0-36.0 - g/dL * P LATELET COUNT 383 150-450 - 10 * R DW 11.8 L 12.3-15.1 - % * M PV 9.0 7.4-10.4 - fl * G RANULOCYTE% 40.9 40-75 - % * L YMPHOCYTE% 44.9 15-57 - % * M ONOCYTE% 10.7 4.0-12.0 - % * E OSINOPHIL% 2.4 0.0-4.0 - % * B ASOPHIL% 0.9 0.0-1.0 - % * I MMATURE GRANULOCYTES % 0.2 0.0-0.8 - % * G RANULOCYTE# 2.37 - 10 * L YMPHOCYTE# 2.60 - 10 * M ONOCYTE# 0.62 - 10 * E OSINOPHIL# 0.14 - 10 * B ASOPHIL# 0.05 - 10 * I MMATURE GRANULOCYTES # 0.01 - 10 * M ANUAL DIFFERENTIAL NO - * Leo Bagley 02/15/2025 0 9:29:06 AM EDT > pt notifiedThis lab was reviewed by Leo Bagley on 02/15/2025 at 09:29 AM EDT ?LAB: SEDIMENTATION RATE* Value Reference Range S EDIMENTATION RATE 10 0-30 - mm/Hr * This lab was reviewed by Haseeb Flowers on 02/10/2025 at 17:04 PM EDT ?LAB: FREE T4 ([facility])8.?Prediabetes?LAB: COMP METABOLIC PANEL* Value Reference Range S ODIUM 139 136-145 - mmol/L * P OTASSIUM 3.9 3.5-5.1 - mmol/L * C HLORIDE 103 98-107 - mmol/L * C ARBON DIOXIDE 29 21-32 - mmol/L * A NION GAP 7.0 - * G LUCOSE 101 70-110 - mg/dL * B LOOD UREA NITROGEN 15 7-18 - mg/dL * C REATININE 0.6 0.6-1.0 - mg/dL * B UN/CREATININE RATIO 25.0 H 9-21 - * E STIMATED GLOM FILTRATION RATE 103 >60- - mL/ min * T OTAL PROTEIN 6.9 6.4-8.2 - g/dL * A LBUMIN 3.7 3.4-5.0 - g/dL * C ALCIUM 9.5 8.5-10.1 - mg/dL * C ORRECTED CALCIUM 9.7 8.5-10.1 - mg/dL * B ILIRUBIN TOTAL 0.6 0.4-1.5 - mg/dL * A ST (SGOT) 23 15-37 - U/L * A LT (SGPT) 34 12-78 - U/L * A LK PHOSPHATASE 123 H 37-110 - U/L * O SMOLALITY (CALCULATED) 290 275-301 - mosm/kg * Leo Bagley 02/15/2025 0 9:29:06 AM EDT > pt notifiedThis lab was reviewed by Leo Bagley on 02/15/2025 at 09:29 AM EDT ?LAB: C-REACTIVE PROTEIN* Value Reference Range C -REACTIVE PROTEIN, QUANT 0.30 0.05-0.300 - mg /dL * This lab was reviewed by Haseeb Flowers on 02/10/2025 at 17:04 PM EDT ?LAB: HEMOGLOBIN A1C* Value Reference Range G LYCOSYLATED HEMOGLOBIN A1C 6.0 4.5-6.2 - % * E STIMATED AVERAGE GLUCOSE 126 82-131 - mg/dl * This lab was reviewed by Haseeb Flowers on 02/10/2025 at 17:04 PM EDT ?LAB: THYROID STIMULATING HORMONE* Value Reference Range T HYROID STIMULATING HORMONE 0.01 L 0.34-4.80 - m IU/mL * Leo Bagley R 02/15/2025 0 9:29:06 AM EDT > pt notifiedThis lab was reviewed by Leoedward Bagley on 02/15/2025 at 09:29 AM EDT ?LAB: URIC ACID* Value Reference Range U CHE ACID 4.3 2.2-7.7 - mg/dL * This lab was reviewed by Haseeb Flowers on 02/10/2025 at 17:04 PM EDT ?LAB: CBC AUTO W DIFF* Value Reference Range W BC 5.8 4.5-11.5 - 10 * R BC 4.45 4.25-5.57 - 10 * H GB 13.5 12.0-15.7 - g/dL * H CT 38.6 36.0-47.0 - % * M CV 86.7 80-95 - fl * M CH 30.3 27.0-34.0 - pg * M CHC 35.0 32.0-36.0 - g/dL * P LATELET COUNT 383 150-450 - 10 * R DW 11.8 L 12.3-15.1 - % * M PV 9.0 7.4-10.4 - fl * G RANULOCYTE% 40.9 40-75 - % * L YMPHOCYTE% 44.9 15-57 - % * M ONOCYTE% 10.7 4.0-12.0 - % * E OSINOPHIL% 2.4 0.0-4.0 - % * B ASOPHIL% 0.9 0.0-1.0 - % * I MMATURE GRANULOCYTES % 0.2 0.0-0.8 - % * G RANULOCYTE# 2.37 - 10 * L YMPHOCYTE# 2.60 - 10 * M ONOCYTE# 0.62 - 10 * E OSINOPHIL# 0.14 - 10 * B ASOPHIL# 0.05 - 10 * I MMATURE GRANULOCYTES # 0.01 - 10 * M ANUAL DIFFERENTIAL NO - * Leo Bagley 02/15/2025 0 9:29:06 AM EDT > pt notifiedThis lab was reviewed by Leo aBgley on 02/15/2025 at 09:29 AM EDT ?LAB: SEDIMENTATION RATE* Value Reference Range S EDIMENTATION RATE 10 0-30 - mm/Hr * This lab was reviewed by Haseeb Flowers on 02/10/2025 at 17:04 PM EDT * Follow Up: p ending results * * Sign off status: Completed true * Provider: IOANA Contreras Date: 0 02/10/2025 Generated for Deepika greene/Rosa Maria/Master on: 1 03:38 PM EDT History and Physical Notes * Examination Category Sub-Category Detail Notes Category Not es General Examination Heart: Regular Rate and Rhythm, no murmur, rubs or gallops Lungs: clear to auscultatio n, Abdomen: soft, +BS Extremities: soft swelling right hand over the thumb CMC joint Oral cavity: Moist membranes Back: mildly tender LS spi ne, 1+ patellar reflexes, + SLR on the right neck supple,, no thyromeg kvng,, no lymphadenopathy, General Pleasant and [place] t[place], NAD on RA, Psych Normal Mood/Affect
--- OUTSIDE RECORDS SUMMARY | 2025-02-11 08:38 | XMS_ITS ---
Author Organization [facility] Address [address] [facility] [address] [facility] [address] [place] [address] Care Team Providers Care Turbine Blade Assembler Name Role Phone Michael Patel Primary Care Provider Flavia Flowers Nancy [phone] Encounters Encounter Location Date Provider Diagnosis [facility] [address] [place] [address] [facility] [address] [place] [address] 02/11/2025 Flavia Flowers Lumbar stenosis with neurogenic claudication M48.062 Assessments Encounter Date Diagnosis (ICD Code) Assessment Notes Treatment Notes Treatment Clinical Notes Section Notes 02/11/2025 Lumbar stenosis with neurogenic claudication (ICD-10 - M48.062) Plan Of Treatment Pending Test Test Name Order Date MRI : Lumbar Spine with & without 2024 Next Appt Details Provider Name:Flavia Ng Madelinvinayak , 05/05/2025 11:00:00 AM, [address] [place] [address], [phone], Progress Notes * Kirstin JULIAN LDOB: 6 (59 yo F)Acc No.[id number]:02/11/2025 Patient: Lisa Kirstin COOLEY :1965 A ge:59 Y S ex:Female Address:[address] [place] [phone] Subjective: * Chief Complaints: * * Medical History: * Surgical History: * Hospitalization/Major Diagno stic Procedure: * Medications: Objective: * Vitals: * Physical Examination: Assessment: * Assessment: 1. L umbar stenosis with neurogenic claudication - M48.062 Plan: * Treatment: * * Procedure Codes: * true * Date: Generated for Deepika Oakes/Master on: 03:40 PM EDT
--- OUTSIDE RECORDS SUMMARY | 2025-02-19 16:42 | XMS_ITS ---
Author Organization [facility] Address [address] [facility] [address] [facility] [address] [place] [address] Care Team Providers Care Electrotype Molder Name Role Phone Michael Patel Primary Care Provider Flavia Flowesr Nancy [phone] REASON FOR VISIT Mammogram Encounters Encounter Location Date Provider Diagnosis [facility] [address] [place] [address] 02/19/2025 Flavia Flowers Visit for screening mammogram Z12.31 Assessments Encounter Date Diagnosis (ICD Code) Assessment Notes Treatment Notes Treatment Clinical Notes Section Notes 02/19/2025 Visit for screening mammogram (ICD-10 - Z12.31) Plan Of Treatment Pending Test Test Name Order Date Mammogram: Screening 02/19/2025 Next Appt Details Provider Name:Flavia Ng An , 05/05/2025 11:00:00 AM, [address] [place] [address], [phone], Progress Notes * Kirstin JULIAN LDOB: 6 (59 yo F)Acc No.[id number]:02/19/2025 Patient: Lisa Kirstin COOLEY :1965 A ge:59 Y S ex:Female Address:[address] [place] [phone] Subjective: * Chief Complaints: * M ammogram * Medical History: * Surgical History: * Hospitalization/Major Diagno stic Procedure: * Medications: Objective: * Vitals: * Physical Examination: Assessment: * Assessment: 1. V isit for screening mammogram - Z12.31 (Primary) Plan: * Treatment: * Procedure Codes: * true * Date: Generated for Deepika greene/Rosa Maria/Master on: 03:39 PM EDT
--- OUTSIDE RECORDS SUMMARY | 2025-02-19 22:03 | XMS_ITS | Continuity of Care Document ---
Author Organization [facility] Phone Care Team Providers Care Editor Publications Name Role Phone JUAN CARLOS POWELL Primary Attending FRANCISCO CHISHOLM Primary Care JUAN CARLOS POWELL Unavailable JUAN CARLOS POWELL Admitting RESULTS Patient: KENNEDY MILLAN Date of : [birth year] LABORATORY RESULTS ORDER 200: SEDIMENTATION RAT E (LOINC: 10726-8) ORDER DATE: February 10, 2025 7:25:00 PM UTC Specimen Source: Whole Blood Specimen Type: Whole blood s ample PERFORMING LAB: [address] [id number] Result Comment: Final Result Date: February 10, 2025 8:42:00 PM UTC (TECH: LT) LOINC TEST [place] [address]-2 Erythrocyte sedimentation rate N 10 mm/Hr 0 mm/Hr - 30 mm/Hr February 10, 2025 8:42:00 PM UTC (TECH: LT) ORDER 300: T4 FREE (LOINC: 3 024-7) ORDER DATE: February 10, 2025 7:25:00 PM UTC Specimen Source: Serum/Plasm a Specimen Type: Acellular blo od (serum or plasma) specimen PERFORMING LAB: [address] [id number] Result Comment: Final Result Date: February 10, 2025 8:05:00 PM UTC (TECH: MRB) LOINC TEST FLAG RESULT [place] 3024-7 Thyroxine (T4) free [Mass/volume] in Serum or Plasma H 1.93 ng/dl 0.76 ng/dl - 1.46 ng/dl February 10, 2025 8:05:00 PM UTC (TECH: MRB) ORDER 400: COMP METABOLIC PA LEONORA (LOINC: 70752-2) ORDER DATE: February 10, 2025 7:25:00 PM UTC Specimen Source: Serum/Plasm a Specimen Type: Acellular blo od (serum or plasma) specimen PERFORMING LAB: [address] [id number] Result Comment: Final Result Date: February 10, 2025 8:05:00 PM UT (TECH: MRB) LOINC TEST FLAG RESULT REFERENCE RANGE UPDA SUSANA BY 2951-2 Sodium [Moles/volume ] in Serum or Plasma N 139 mmol/L 136 mmol/L - 145 mmol/L February 10, 2025 8:05:00 PM UT (TECH: MRB) 2823-3 Potassium [Moles/volume] in Serum or Plasma N 3.9 mmol/L 3.5 mmol/L - 5.1 mmol/L February 10, 2025 8:05:00 PM UT (TECH: MRB) 5-0 Chloride [Moles/volume] in Serum or Plasma N 103 mmol/L 98 mmol/L - 107 mmol/L February 10, 2025 8:05:00 PM UT (TECH: MRB) 8-9 Carbon dioxide, tota l [Moles/volume] in Serum or Plasma N 29 mmol/L 21 mmol/L - 32 mmol/L February 10, 2025 8:05:00 PM UT (TECH: MRB) 09343-7 Anion gap 3 in Serum or Plasma N 7.0 February 10, 2025 8:05:00 PM UT (TECH: MRB) 2345-7 Glucose [Mass/volume ] in Serum or Plasma N 101 mg/dL 70 mg/dL - 110 mg/dL February 10, 2025 8:05:00 PM UTC (TECH: MRB) 3094-0 Urea nitrogen [Mass/volume] in Serum or Plasma N 15 mg/dL 7 mg/dL - 18 mg/dL February 10, 2025 8:05:00 PM UT (TECH: MRB) 2160-0 Creatinine [Mass/volume] in Serum or Plasma N 0.6 mg/dL 0.6 mg/dL - 1.0 mg/dL February 10, 2025 8:05:00 PM UT (TECH: MRB) 3097-3 Urea nitrogen/Creatinine [Mass Ratio] in Serum or Plasma H 25.0 9 - 21 February 10, 2025 8:05:00 PM UTC (TECH: MRB) 03844-5 Glomerular filtratio n rate/1.73 sq M.predicted by Creatinine-based formula (MDRD) N 103 mL/min >60 February 10, 2025 8:05:00 PM UTC (TECH: MRB) 32002-1 Osmolality of Serum or Plasma by calculated by sum of electrolytes N 290 mosm/kg 275 mosm/kg - 301 mosm/kg February 10, 2025 8:05:00 PM UTC (TECH: MRB) 2885-2 Protein [Mass/volume ] in Serum or Plasma N 6.9 g/dL 6.4 g/dL - 8.2 g/dL February 10, 2025 8:05:00 PM UTC (TECH: MRB) 1751-7 Albumin [Mass/volume ] in Serum or Plasma N 3.7 g/dL 3.4 g/dL - 5.0 g/dL February 10, 2025 8:05:00 PM UTC (TECH: MRB) 84084-9 Calcium [Mass/volume ] in Serum or Plasma N 9.5 mg/dL 8.5 mg/dL - 10.1 mg/dL February 10, 2025 8:05:00 PM UTC (TECH: MRB) 45733-0 Calcium [Mass/volume ] corrected for total protein in Serum or Plasma N 9.7 mg/dL 8.5 mg/dL - 10.1 mg/dL February 10, 2025 8:05:00 PM UTC (TECH: MRB) 1975-2 Bilirubin.total [Mass/volume] in Serum or Plasma N 0.6 mg/dL 0.4 mg/dL - 1.5 mg/dL February 10, 2025 8:05:00 PM UTC (TECH: MRB) 1920-8 Aspartate aminotransferase [Enzymatic activity/volume] in Serum or Plasma N 23 U/L 15 U/L - 37 U/L February 10, 2025 8:05:00 PM UTC (TECH: MRB) 1742-6 Alanine aminotransferase [Enzymatic activity/volume] in Serum or Plasma N 34 U/L 12 U/L - 78 U/L February 10, 2025 8:05:00 PM UTC (TECH: MRB) 6768-6 Alkaline phosphatase [Enzymatic activity/volume] in Serum or Plasma H 123 U/L 37 U/L - 110 U/L February 10, 2025 8:05:00 PM UTC (TECH: MRB) ORDER 500: RHEUMATOID FACTOR IGA BY EIA (LOINC: 82600-8) ORDER DATE: February 10, 2025 7:25:00 PM UTC Specimen Source: Serum Specimen Type: Serum specime n PERFORMING LAB: [address] [id number] Result Comment: February 19 7:35:00 AM UTC Performed at: [facility] Result Comment: February 19, 2025 7:35:00 AM UTC [address] [place] [id number] Result Comment: February 19, 2025 7:35:00 AM UTC Butt Trimmer: Jerry Molina MD, Phone: [phone] Result Comment: February 19, 2025 7:35:00 AM UTC Final Result Date: February 19, 2025 7:25:00 PM UTC (TECH: LAB) LOINC TEST FLAG [place] [address]-1 Rheumatoid factor IgA [Units/volume] in Serum N <7 U <7 February 19, 2025 7:25:00 PM UTC (TECH: LAB) ORDER 600: CBC AUTO W DIFF ( LOINC: 77622-5) ORDER DATE: February 10, 2025 7:25:00 PM UTC Specimen Source: Whole Blood Specimen Type: Whole blood s ample PERFORMING LAB: [address] [id number] Result Comment: Final Result Date: February 10, 2025 7:46:00 PM UTC (TECH: MRB) LOINC TEST FLAG RESULT REFERENCE RANGE UPDA SUSANA BY 6690-2 Leukocytes [#/volume] in Blood by Automated count N 5.8 10^3/uL 4.5 10^3/uL - 11.5 10^3/uL February 10, 2025 7:46:00 PM UTC (TECH: MRB) 789-8 Erythrocytes [#/volume] in Blood by Automated count N 4.45 10^6/uL 4.25 10^6/uL - 5.57 10^6/uL February 10, 2025 7:46:00 PM UTC (TECH: MRB) 718-7 Hemoglobin [Mass/volume] in Blood N 13.5 g/dL 12.0 g/dL - 15.7 g/dL February 10, 2025 7:46:00 PM UTC (TECH: MRB) 30976-5 Hematocrit [Volume Fraction] of Blood N 38.6 % 36.0 % - 47.0 % February 10, 2025 7:46:00 PM UTC (TECH: MRB) 787-2 Erythrocyte mean corpuscular volume [Entitic volume] by Automated count N 86.7 fl 80 fl - 95 fl February 10, 2025 7:46:00 PM UTC (TECH: MRB) 46911-7 Erythrocyte mean corpuscular hemoglobin [Entitic mass] in Blood from [place] by Automated count N 30.3 pg 27.0 pg - 34.0 pg February 10, 2025 7:46:00 PM UTC (TECH: MRB) 21658-9 Erythrocyte mean corpuscular hemoglobin concentration [Mass/volume] in Blood from Fetus by Automated count N 35.0 g/dL 32.0 g/dL - 36.0 g/dL February 10, 2025 7:46:00 PM UTC (TECH: MRB) 67017-1 Platelets [#/volume] in Blood N 383 10^3/uL 150 10^3/uL - 450 10^3/uL February 10, 2025 7:46:00 PM UTC (TECH: MRB) 39047-5 Erythrocyte distribution width [Ratio] L 11.8 % 12.3 % - 15.1 % February 10, 2025 7:46:00 PM UTC (TECH: MRB) 70851-4 Platelet mean volume [Entitic volume] in Blood by Automated count N 9.0 fl 7.4 fl - 10.4 fl February 10, 2025 7:46:00 PM UTC (TECH: MRB) 67078-0 Granulocytes/100 leukocytes in Blood by Automated count N 40.9 % 40 % - 75 % February 10, 2025 7:46:00 PM UTC (TECH: MRB) 736-9 Lymphocytes/100 leukocytes in Blood by Automated count N 44.9 % 15 % - 57 % February 10, 2025 7:46:00 PM UTC (TECH: MRB) 5905-5 Monocytes/100 leukocytes in Blood by Automated count N 10.7 % 4.0 % - 12.0 % February 10, 2025 7:46:00 PM UTC (TECH: MRB) 713-8 Eosinophils/100 leukocytes in Blood by Automated count N 2.4 % 0.0 % - 4.0 % February 10, 2025 7:46:00 PM UTC (TECH: MRB) 706-2 Basophils/100 leukocytes in Blood by Automated count N 0.9 % 0.0 % - 1.0 % February 10, 2025 7:46:00 PM UTC (TECH: MRB) 33352-0 Immature granulocytes [#/volume] in Blood N 0.2 % 0.0 % - 0.8 % January 7:46:00 PM UTC (TECH: MRB) 08986-8 Granulocytes [#/volume] in Blood by Automated count N 2.37 10^3/uL February 10, 2025 7:46:00 PM UTC (TECH: MRB) 731-0 Lymphocytes [#/volume] in Blood by Automated count N 2.60 10^3/uL February 10, 2025 7:46:00 PM UTC (TECH: MRB) 742-7 Monocytes [#/volume] in Blood by Automated count N 0.62 10^3/uL February 10, 2025 7:46:00 PM UTC (TECH: MRB) 711-2 Eosinophils [#/volume] in Blood by Automated count N 0.14 10^3/uL February 10, 2025 7:46:00 PM UTC (TECH: MRB) 704-7 Basophils [#/volume] in Blood by Automated count N 0.05 10^3/uL February 10, 2025 7:46:00 PM UTC (TECH: MRB) 41910-6 Immature granulocytes [#/volume] in Blood N 0.01 10^3/uL January 7:46:00 PM UTC (TECH: MRB) 59507-5 Manual differential performed [Presence] in Blood N NO February 10, 2025 7:46:00 PM UTC (TECH: MRB) ORDER 700: HEMOGLOBIN A1C (L OINC: 4548-4) ORDER DATE: February 10, 2025 7:25:00 PM UTC Specimen Source: Whole Blood Specimen Type: Whole blood s ample PERFORMING LAB: [address] [id number] Result Comment: Final Result Date: February 10, 2025 7:55:00 PM UTC (TECH: MRB) LOINC TEST FLAG RESULT REFERENCE RANGE UPDA SUSANA BY 4548-4 Hemoglobin A1c/Hemoglobin.tot al in Blood N 6.0 % 4.5 % - 6.2 % February 10, 2025 7:55:00 PM UTC (TECH: MRB) 39146-0 Glucose mean value [Mass/volume] in Blood Estimated from glycated hemoglobin N 126 mg/dl 82 mg/dl - 131 mg/dl February 10, 2025 7:55:00 PM UTC (TECH: MRB) ORDER 800: URIC ACID (LOINC: 3084-1) ORDER DATE: February 10, 2025 7:25:00 PM UTC Specimen Source: Serum/Plasm a Specimen Type: Acellular blo od (serum or plasma) specimen PERFORMING LAB: [address] [id number] Result Comment: Final Result Date: February 10, 2025 8:06:00 PM UTC (TECH: MRB) LOINC TEST FLAG RESULT REFERENCE RANGE UPDA SUSANA BY 3084-1 Urate [Mass/volume] in Serum or Plasma N 4.3 mg/dL 2.2 mg/dL - 7.7 mg/dL February 10, 2025 8:06:00 PM UTC (TECH: MRB) ORDER 900: C-REACTIVE PROTEI N (LOINC: 1987-) ORDER DATE: February 10, 2025 7:25:00 PM UTC Specimen Source: Serum/Plasm a Specimen Type: Acellular blo od (serum or plasma) specimen PERFORMING LAB: [address] [id number] Result Comment: Final Result Date: February 10, 2025 8:06:00 PM UTC (TECH: MRB) LOINC TEST FLAG RESULT REFERENCE RANGE UPDA SUSANA BY 1987- C reactive protein [Mass/volume] in Serum or Plasma N 0.30 mg/dL 0.05 mg/dL - 0.300 mg/dL February 10, 2025 8:06:00 PM UT (TECH: MRB) ORDER 1000: THYROID STIMULAT ING HORMONE (LOINC: 3016-3) ORDER DATE: February 10, 2025 7:25:00 PM UT Specimen Source: Serum/Plasm a Specimen Type: Acellular blo od (serum or plasma) specimen PERFORMING LAB: [address] [id number] Result Comment: Final Result Date: February 10, 2025 8:06:00 PM UT (TECH: MRB) LOINC TEST FLAG RESULT REFERENCE RANGE UPDA SUSANA BY 3016-3 Thyrotropin [Units/volume] in Serum or Plasma L 0.01 mIU/mL 0.34 mIU/mL - 4.80 mIU/mL February 10, 2025 8:06:00 PM [facility] (TECH: MRB) LABORATORY NARRATIVE RESULTS Information is not available RADIOLOGY RESULTS Information is not available PATHOLOGY NARRATIVE RESULTS Information is not available [...] Effective Dates Offered Cessation Comment Updated By [id number] Smoking Status Unknown If Ever Smoked SOCIAL HISTORY - Gender Sex: Female SOCIAL HISTORY - Status : status i nformation is not available Intention in Next Year: intention information is not available SOCIAL HISTORY - Assessments Code System Description Status Date Value of Assessment Updated By Comment Assessment Information is no t available SOCIAL HISTORY - [place] Affiliation [place] information is not av ailable SOCIAL HISTORY [...] available. ENCOUNTERS ENCOUNTER INFORMATION Reason for Visit I10 Admission February 10, 2025 7:18:00 PM [place] C [facility] [address] [facility] [address] Discharge February 10, 2025 7:18:00 PM UT C DISCHARGED TO HOME OR SELF CARE ENCOUNTER DIAGNOSES Notes information is not lacie ilable. Code System Diagnosis Onset Date Diagnosis information is not available. ABSTRACT DIAGNOSES Code System Diagnosis Updated By Abatement Date I10 ICD10 ESSENTIAL (PRIMA RY) HYPERTENSION [id number] on February 12, 2025 5:21:29 AM UT M79.641 ICD10 PAIN IN RIGHT HAND [id number] o n February 12, 2025 5:21:29 AM [place] M79.642 ICD10 PAIN IN LEFT HAND [id number] on February 12, 2025 5:21:29 AM [place] I10 ICD10 ESSENTIAL (PRIMA RY) HYPERTENSION [id number] on February 12, 2025 5:21:29 AM [place] M79.641 ICD10 PAIN IN RIGHT HAND [id number] o n February 12, 2025 5:21:29 AM [place] M79.642 ICD10 PAIN IN LEFT HAND [id number] on February 12, 2025 5:21:29 AM [place] M46.46 ICD10 DISCITIS, UNSPEC IFIED, LUMBAR REGION [id number] on February 12, 2025 5:21:29 AM [place] E03.9 ICD10 HYPOTHYROIDISM, UNSPECIFIED [id number] on February 12, 2025 5:21:29 AM [place] G89.29 ICD10 OTHER CHRONIC PAIN [id number] o n February 12, 2025 5:21:29 AM [place] R73.03 ICD10 PREDIABETES [id number] on Jan 5:21:29 AM [facility] CARE TEAM Care Editor Publications Role JUAN CARLOS POWELL Primary Attending FRANCISCO CHISHOLM Primary Care JUAN CARLOS POWELL Referring JUAN CARLOS POWELL Admitting 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 Role on Team Location Telecom Status Start Date End Harry e Updated By PHAN SINGH MD PCP normal February 10, 2025 4:00:00 AM [facility] February 10, 2025 7:18:00 PM [facility] [id number] on February 10, 2025 7:19:20 PM [facility] SHERRY Ng APRN Referring normal February 10, 2025 4:00:00 AM [facility] February 10, 2025 7:18:00 PM [facility] [id number] on February 10, 2025 7:19:20 PM [facility] SHERRY Ng APRN Attending normal February 10, 2025 4:00:00 AM [facility] February 10, 2025 7:18:00 PM [facility] [id number] on February 10, 2025 7:19:20 PM [facility] SHERRY Ng APRN Admitting normal February 10, 2025 4:00:00 AM [facility] February 10, 2025 7:18:00 PM [facility] [id number] on February 10, 2025 7:19:20 PM [facility]
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
--- NOTE | 2025-03-04 16:32 | MM_ITS ---
PROCEDURE INFORMATION: Exam: MG Bilateral Screening 3D Mammography Exam date and time: 03/04/2025 4:33 PM Age: 59 years old Clinical indication: Screening examination TECHNIQUE: Imaging protocol: Bilateral Screening tomosynthesis and 2D mammography including computer-aided detection (CAD) when performed. COMPARISON: 1. MG MM DIG SCREENING MAMM BI W/CAD 03/14/2021 5:19 PM 2. MG MM DIG SCREENING MAMM BI W/CAD 12/02/2019 3:49 PM FINDINGS: MAMMOGRAPHY: Breast composition: The breasts are heterogeneously dense, which may obscure small masses. Mass: No suspicious masses. Architectural distortion: None. Calcifications: No suspicious calcifications. Asymmetric density: None. Skin thickening: None. Axillary adenopathy: None. IMPRESSION: No mammographic evidence of malignancy. Annual screening is recommended unless otherwise clinically indicated. ASSESSMENT: BI-RADS Category 1: Negative.
== END 2025-03-04 23:59 | disposition home or self-care (01) ==
LOC: RAD 15:37
PROVIDERS: PCP Internal Medicine Adolescent Medicine; Visit Provider Nurse Practitioner Family
DX: Z12.31 Encounter for screening mammogram for malignant neoplasm of breast (principal); R92.333 Mammographic heterogeneous density, bilateral breasts
CPT/HCPCS: 77063; 77067